=== PATIENT | female | born 1930 | race Hispanic/Latino ===

== ENCOUNTER 2017-12-03 10:55 | Inpatient (IN) | payer OTHER ==
[2017-12-03] MEDS ORDERED: SODIUM CHLORIDE FLUSH SYRINGE 10 ML IV PRN (11:13)
[2017-12-03 13:12] LABS: Hematocrit 43.2 % (30.3-42.9); Hemoglobin 14.7 gm/dl (10.1-14.3); Mean Corpuscular HGB Conc 34 % (30-34); Mean Corpuscular Hemoglobin 30 pg (28-32); Mean Corpuscular Volume 87 fl (79-97); Platelet Count 269 K/mm3 (140-440); Red Blood Count 4.94 M/mm3 (3.65-5.03); Red Cell Distribution Width 14.3 % (13.2-15.2)
[2017-12-03 13:21] LABS: Partial Thromboplastin Time 34.7 Sec. (24.2-36.6)
[2017-12-03 13:28] LABS: Albumin 3.9 g/dL (3.9-5)
[2017-12-03 14:16] LABS: Band Neutrophils # (Manual) 0.5 K/mm3; Basophils % (Manual) 0 % (0.0-1.8); Eosinophils % (Manual) 0 % (0.0-4.3); Total Cells Counted 100
[2017-12-03 14:17] LABS: Anisocytosis 1+; Platelet Estimate Cons
[2017-12-03] MEDS: PROTONIX IV SCH (14:23)
[2017-12-03] MEDS: NACL 0.9% 1000 ML 1,000 ML IV SCH ×2 (14:23→23:56)
--- NOTE | 2017-12-03 17:22 | History and Physical Report ---
History of Present Illness Date of examination: 12/03/17 Date of admission: 12/03/17 11:52 Medications and Allergies Allergies Allergy/AdvReac Type Severity Reaction Status Date / Time codeine Allergy Unknown Verified 12/03/17 17:13 FANTA Inhibitors AdvReac Unknown Verified 12/03/17 11:12 morphine AdvReac Unknown Verified 12/03/17 11:12 Sulfa (Sulfonamide AdvReac Unknown Verified 12/03/17 17:13 Antibiotics) Active Meds: Active Medications Sodium Chloride (Nacl 0.9% 1000 Ml) 1,000 mls @ 100 mls/hr IV DIRECT PARAMJIT Last Admin: 12/03/17 14:23 Dose: 100 mls/hr Pantoprazole Sodium (Protonix) 40 mg IV QDAY [facility] Last Admin: 12/03/17 14:23 Dose: 40 mg Pneumococcal Polyvalent Vaccine (Pneumovax 23) 0.5 ml IM .ONCE ONE Stop: 12/04/17 12:01 Sodium Chloride (Sodium Chloride Flush Syringe 10 Ml) 10 ml IV BID PARAMJIT Sodium Chloride (Sodium Chloride Flush Syringe 10 Ml) 10 ml IV PRN PRN PRN Reason: LINE FLUSH Exam - Constitutional Vitals: Temp Pulse Resp BP Pulse Ox 88 101/59 12/03/17 14:28 12/03/17 14:28 Results - Labs CBC & Chem 7: 12/03/17 12:31 12/03/17 12:31 Labs: Abnormal lab results 12/03/17 12/03/17 Range/Units 12:31 12:31 Hgb 14.7 H (10.1-14.3) gm/dl Hct 43.2 H (30.3-42.9) % Monocytes % (Manual) 20.0 H (0.0-7.3) % Nucleated RBC % 1.0 H (0.0-0.9) % Monocytes # (Manual) 1.5 H (0.0-0.8) K/mm3 Sodium 135 L (137-145) mmol/L Chloride 95.5 L (98-107) mmol/L Carbon Dioxide 21 L (22-30) mmol/L BUN 31 H (7-17) mg/dL Glucose 167 H (65-100) mg/dL
--- NOTE | 2017-12-03 19:24 | Cat Scan Report ---
FINAL REPORT EXAM: CT ABDOMEN PELVIS W CON HISTORY: ABDOMINAL PAIN, HEMATOCHEZIA TECHNIQUE: Helical CT scan through the abdomen and pelvis after ingestion of oral contrast and during intravenous injection of iodinated contrast. Images are reconstructed in the sagittal and coronal planes. PRIORS: None. FINDINGS: Images through the lower thorax show extensive hilar and mediastinal calcified lymph nodes consistent with old granulomatous disease. There are calcified pulmonary granulomas in the bilateral lung bases. The liver, pancreas and adrenal glands appear normal. Gallbladder is absent. There are calcifications in the spleen consistent with old granulomatous disease. There are scattered tiny cysts in the right kidney. There are multiple cysts in the left kidney with the largest measuring 2.1 cm. Otherwise, the kidneys appear normal. The uterus and ovaries are absent. There is a small hiatal hernia. Otherwise, the stomach appears grossly within normal limits. Most of the ileum has diffuse wall thickening. There is an air-fluid level in the cecum. There is colonic diverticulosis without evidence of acute diverticulitis. A normal-appearing appendix is identified. There is extensive atherosclerotic calcification of the abdominal aorta and iliac and femoral arteries without aneurysm. There is atherosclerotic calcification of the origin of the SMA and bilateral renal arteries as well throughout the iliac and visualized femoral arteries. There is been posterior metallic fusion from L4 through S1. There is an umbilical hernia containing normal appearing fat. IMPRESSION: 1. Extensive thickening of the wall of the ileum may be due to infectious enteritis, inflammatory enteritis or ischemia 2. Extensive atherosclerosis 3. Evidence of old granulomatous disease 4. Umbilical hernia containing normal appearing fat
--- NOTE | 2017-12-03 20:21 | History and Physical Report ---
History of Present Illness Date of examination: 12/03/17 Date of admission: 12/03/17 11:52 Chief complaint: Bloody diarrhea 2 days duration History of present illness: Patient [age]-year-old lady who has a history of dementia, diabetes mellitus type 2, hypertension, bipolar disorder and lives in a personal snf presetned to my office today with her caregiver complaining of abdominal pain and bloody diarrhea. Abdominal pain was moderate to severe in intensity. Associated with bloody diarrhea. Has had about 10 loose motions since onset 2 days ago. Has nausea and vomiting 2. Has bright red blood mixed with loose stool . Patient had low-grade fever at home. Denies any weight loss. Pt has dementia. This history was therefore obtained from her caregiver over the phone Past History Past Medical History: diabetes, hypertension, other (vascular dementia, bipolar disorder) Past Surgical History: No surgical history Social history: denies: smoking, alcohol abuse, prescription drug abuse Family history: no significant family history Medications and Allergies Allergies Allergy/AdvReac Type Severity Reaction Status Date / Time codeine Allergy Unknown Verified 12/03/17 17:13 FANTA Inhibitors AdvReac Unknown Verified 12/03/17 11:12 morphine AdvReac Unknown Verified 12/03/17 11:12 Sulfa (Sulfonamide AdvReac Unknown Verified 12/03/17 17:13 Antibiotics) Active Meds: Active Medications Sodium Chloride (Nacl 0.9% 1000 Ml) 1,000 mls @ 100 mls/hr IV DIRECT PARAMJIT Last Admin: 12/03/17 14:23 Dose: 100 mls/hr Pantoprazole Sodium (Protonix) 40 mg IV QDAY PARAMJIT Last Admin: 12/03/17 14:23 Dose: 40 mg Pneumococcal Polyvalent Vaccine (Pneumovax 23) 0.5 ml IM .ONCE ONE Stop: 12/04/17 12:01 Sodium Chloride (Sodium Chloride Flush Syringe 10 Ml) 10 ml IV BID PARAMJIT Sodium Chloride (Sodium Chloride Flush Syringe 10 Ml) 10 ml IV PRN PRN PRN Reason: LINE FLUSH Review of Systems ROS unobtainable: due to mental status Exam - Physical Exam Narrative exam: Constitutional: Well-nourished well-developed. Pleasantly confused. In no distress Head: Normocephalic atraumatic Eyes: Pupils are equal round and reactive to light Nose: No enlarged turbinates, no septal deviation. Mouth: Moist mucous membranes. Neck: Supple no thyromegaly. No bruit. No JVD Heart: Regular rate and rhythm, S1-S2 abnormal. No rubs murmurs or gallop Lungs: Clear to auscultation bilaterally no rales or rhonchi Abdomen: Soft, nontender. Bowel sound are present. Extremities: No edema no cyanosis and no clubbing. Neuro: Alert oriented Oriented x1. No focal sensory or motor deficit. Pleasantly confused Skin: No rashes no hyperemic spots Psychiatry: Acute LLE cellulites - Constitutional Vitals: Temp Pulse Resp BP Pulse Ox 88 108/54 12/03/17 14:28 12/03/17 19:16 Results - Labs CBC & Chem 7: 12/03/17 12:31 12/03/17 12:31 Labs: Abnormal lab results 12/03/17 12/03/17 Range/Units 12:31 12:31 Hgb 14.7 H (10.1-14.3) gm/dl Hct 43.2 H (30.3-42.9) % Monocytes % (Manual) 20.0 H (0.0-7.3) % Nucleated RBC % 1.0 H (0.0-0.9) % Monocytes # (Manual) 1.5 H (0.0-0.8) K/mm3 Sodium 135 L (137-145) mmol/L Chloride 95.5 L (98-107) mmol/L Carbon Dioxide 21 L (22-30) mmol/L BUN 31 H (7-17) mg/dL Glucose 167 H (65-100) mg/dL Assessment and Plan - Bloody diarrhea - Acute metabolic encephalopathy - Prediabetes with A1c of 6.2% - Mild dehydration. BUN of 31 Admit NPO, IV hydration, serial H&H Stool for occult blood, cx, ova and parasite Trend glucose level and commence sliding scale insulin if glucose level is greater than 180 Gradual hydration, CT scan of the abdomen and pelvis after adequate hydration GI consult DVT prophylaxis with SCDs only
[2017-12-03 23:12] LABS: Hematocrit 39.9 % (30.3-42.9); Hemoglobin 13.6 gm/dl (10.1-14.3)
--- NOTE | 2017-12-03 23:49 | XRay Report ---
FINAL REPORT PROCEDURE: XR CHEST 1V AP TECHNIQUE: Chest radiograph anteroposterior view. CPT 37491 HISTORY: polycythemia COMPARISON: No prior studies are available for comparison. FINDINGS: Heart: The heart size is slightly pronounced. Mediastinum/Vessels: Normal. Lungs/Pleural space: Multiple nodular densities identified in both lower lungs these measure up to 8 millimeters. Multiple calcified granulomas identified in both hilar regions. Findings consistent with granulomatous change. No consolidating infiltrate or effusion. Pneumothorax. Bony thorax: No acute osseous abnormality. Life support devices: None. IMPRESSION: Nodular densities in both lower lungs measuring up to 8 millimeters. Multiple calcified granulomas in both hilar regions consistent with old granulomatous change. No evidence of an acute infiltrate or effusion..
[2017-12-03] MEDS: SODIUM CHLORIDE FLUSH SYRINGE 10 ML IV SCH (23:57)
[2017-12-04 03:10] LABS: Bacteria,Urine 4+ /HPF (Negative); Bilirubin,Urine NEG (Negative); Blood,Urine SM (Negative); Color,Urine Yellow (Yellow); Mucus,Urine FEW /HPF; Urobilinogen,Urine < 2.0 mg/dL (<2.0)
[2017-12-04 04:58] LABS: Hematocrit 43.4 % (30.3-42.9); Hemoglobin 14.1 gm/dl (10.1-14.3); Mean Corpuscular HGB Conc 32 % (30-34); Mean Corpuscular Hemoglobin 30 pg (28-32); Mean Corpuscular Volume 92 fl (79-97); Platelet Count 232 K/mm3 (140-440); Red Blood Count 4.72 M/mm3 (3.65-5.03); Red Cell Distribution Width 14.8 % (13.2-15.2)
[2017-12-04 05:13] LABS: Alanine Aminotransferase 8 units/L (7-56); Albumin 3.5 g/dL (3.9-5); BUN/Creatinine Ratio 36; Blood Urea Nitrogen 29 mg/dL (7-17); Calcium 9.5 mg/dL (8.4-10.2); Hemolysis Index 13
[2017-12-04 06:29] LABS: Band Neutrophils # (Manual) 1.7 K/mm3; Basophils % (Manual) 0 % (0.0-1.8); Eosinophils % (Manual) 0 % (0.0-4.3); Platelet Estimate Consistent w Auto; Total Cells Counted 100
--- NOTE | 2017-12-04 09:57 | Progress Note ---
Assessment and Plan Blood diarrhea: ?secondary to colitis No evidence of acute GI bleeding, H/H stable CT of abdomen and pelvis showed extensive thickening of wall of ileum suggestive of infectious enteritis or inflammatory enteritis or ischemia follow-up stool studies Continue gentle hydration with IV fluids GI following. commnece flagyl po and cipro Prediabetes: A1c 6.2% Will follow blood sugars and commence sliding scale insulin if greater than 180 Mild dehydration: Improving with IV fluids Hyponatremia: Likely due to dehydration Improving with IVF DVT prophylaxis with SCDs, GI prophylaxis with Protonix Subjective Date of service: 12/04/17 Principal diagnosis: Bloody diarrhea Interval history: Patient seen and examined. Laboratory tests reviewed. Objective - Constitutional Vitals: Vital Signs - 12hr 12/03/17 12/03/17 12/04/17 22:00 23:45 05:46 Temperature 98.0 F 99.4 F Pulse Rate 101 H 105 H Respiratory 18 18 16 Rate Blood Pressure 108/67 81/41 O2 Sat by Pulse 93 95 Oximetry General appearance: Present: no acute distress, well-nourished - EENT Eyes: PERRL, EOM intact ENT: hearing intact, clear oral mucosa Ears: bilateral: normal - Neck Neck: supple, normal ROM - Respiratory Respiratory effort: normal Respiratory: bilateral: CTA - Breasts Breasts: deferred - Cardiovascular Rhythm: regular Heart Sounds: Present: S1 & S2. Absent: gallop, rub Extremities: pulses intact, No edema, normal color, Full ROM - Gastrointestinal General gastrointestinal: Present: soft, non-tender, non-distended, normal bowel sounds Rectal Exam: deferred - Genitourinary Female genitourinary: deferred - Integumentary Integumentary: clear, warm, dry - Musculoskeletal Musculoskeletal: strength equal bilaterally - Neurologic Neurologic: moves all extremities - Psychiatric Psychiatric: appropriate mood/affect, cooperative - Labs CBC & Chem 7: 12/04/17 13:29 12/04/17 04:27 Labs: Abnormal lab results 12/03/17 12/03/17 12/03/17 Range/Units 12:31 12:31 19:18 Hgb 14.7 H (10.1-14.3) gm/dl Hct 43.2 H (30.3-42.9) % Seg Neuts % (Manual) (40.0-70.0) % Monocytes % (Manual) 20.0 H (0.0-7.3) % Nucleated RBC % 1.0 H (0.0-0.9) % Seg Neutrophils # Man (1.8-7.7) K/mm3 Monocytes # (Manual) 1.5 H (0.0-0.8) K/mm3 Sodium 135 L (137-145) mmol/L Chloride 95.5 L (98-107) mmol/L Carbon Dioxide 21 L (22-30) mmol/L BUN 31 H (7-17) mg/dL Glucose 167 H (65-100) mg/dL Hemoglobin A1c 6.2 H (4-6) % Phosphorus (2.5-4.5) mg/dL Albumin (3.9-5) g/dL Ur Specific [place] (1.003-1.030) 12/04/17 12/04/17 12/04/17 Range/Units 02:18 04:27 04:27 Hgb (10.1-14.3) gm/dl Hct 43.4 H (30.3-42.9) % Seg Neuts % (Manual) 31.0 L (40.0-70.0) % Monocytes % (Manual) (0.0-7.3) % Nucleated RBC % (0.0-0.9) % Seg Neutrophils # Man 1.4 L (1.8-7.7) K/mm3 Monocytes # (Manual) (0.0-0.8) K/mm3 Sodium 136 L (137-145) mmol/L Chloride (98-107) mmol/L Carbon Dioxide 19 L (22-30) mmol/L BUN 29 H (7-17) mg/dL Glucose 108 H (65-100) mg/dL Hemoglobin A1c (4-6) % Phosphorus 1.70 L D (2.5-4.5) mg/dL Albumin 3.5 L (3.9-5) g/dL Ur Specific [place] > 1.059 H (1.003-1.030)
[2017-12-04] MEDS: PROTONIX IV SCH (10:19)
[2017-12-04] MEDS: NACL 0.9% 1000 ML 1,000 ML IV SCH ×2 (10:19→23:22)
[2017-12-04] MEDS: SODIUM CHLORIDE FLUSH SYRINGE 10 ML IV SCH ×2 (10:20→22:23)
--- NOTE | 2017-12-04 10:48 | Gastroenterology Consultation ---
<HANH CASTILLO - Last Filed: 12/04/17 10:49> History of Present Illness - Reason for Consult Consult date: 12/04/17 GI bleed Requesting physician: MARVIN BIRMINGHAM - History of Present Illness Patient is a 87 y/o female with PMH of dementia, DM, HTN, and bipolar disorder who was brought to ED from personal skilled nursing with c/o abd pain and bloody diarrhea with bright red blood mixed with loose stool x 2 days with an associated low grade fever and N/V x 2 episodes to which GI has been consulted. No hematemesis or melena. Denies CP, SOB, dizziness, constipation, or wt loss. This morning patient was resting in bed w/o acute distress. Reports abd pain and diarrhea is improving. No BM or active signs of bleeding this am per patient and nursing. Tolerating clear liquids. Patient states she believes she has had some antibiotics recently but is unsure. No travel or known ill contacts. No hx of IBD. Past History Past Medical History: diabetes, hypertension, other (vascular dementia, bipolar disorder) Past Surgical History: No surgical history Social history: other (personal skilled nursing resident). denies: smoking, alcohol abuse, prescription drug abuse Family history: no significant family history Medications and Allergies Allergies Allergy/AdvReac Type Severity Reaction Status Date / Time codeine Allergy Unknown Verified 12/03/17 17:13 FANTA Inhibitors AdvReac Unknown Verified 12/03/17 11:12 morphine AdvReac Unknown Verified 12/03/17 11:12 Sulfa (Sulfonamide AdvReac Unknown Verified 12/03/17 17:13 Antibiotics) Home Medications Medication Instructions Recorded Confirmed Last Taken Type Aspirin EC [Aspirin Enteric Coated 81 mg PO QDAY 12/03/17 12/03/17 Unknown History TAB] AtorvaSTATin 20 mg PO HS 12/03/17 12/03/17 Unknown History Carvedilol 3.125 mg PO BID 12/03/17 12/03/17 Unknown History LORazepam [Ativan] 1 mg PO BID 12/03/17 12/03/17 Unknown History Metformin HCl [Glucophage] 500 mg PO HS 12/03/17 12/03/17 Unknown History NIFEdipine [Nifedipine ER] 60 mg PO QDAY 12/03/17 12/03/17 Unknown History QUEtiapine Fumarate 100 mg PO HS 12/03/17 12/03/17 Unknown History Quetiapine Fumarate [SEROquel] 50 mg PO QDAY 12/03/17 12/03/17 Unknown History risperiDONE [Risperdal] 0.5 mg PO HS 12/03/17 12/03/17 Unknown History Active Meds: Active Medications Sodium Chloride (Nacl 0.9% 1000 Ml) 1,000 mls @ 100 mls/hr IV DIRECT [facility] Last Admin: 12/04/17 10:19 Dose: 100 mls/hr Pantoprazole Sodium (Protonix) 40 mg IV QDAY [facility] Last Admin: 12/04/17 10:19 Dose: 40 mg Pneumococcal Polyvalent Vaccine (Pneumovax 23) 0.5 ml IM .ONCE ONE Stop: 12/04/17 12:01 Sodium Chloride (Sodium Chloride Flush Syringe 10 Ml) 10 ml IV BID [facility] Last Admin: 12/04/17 10:20 Dose: 10 ml Sodium Chloride (Sodium Chloride Flush Syringe 10 Ml) 10 ml IV PRN PRN PRN Reason: LINE FLUSH Review of Systems - Review of Systems All systems: negative Gastrointestinal: abdominal pain, diarrhea, hematochezia Exam - Constitutional Vital Signs: Temp Pulse Resp BP Pulse Ox 99.4 F 105 H 16 81/41 95 12/04/17 05:46 12/04/17 05:46 12/04/17 05:46 12/04/17 05:46 12/04/17 05:46 General appearance: no acute distress - EENT Eyes: PERRL, EOM intact ENT: hearing intact - Respiratory Respiratory: bilateral: CTA - Cardiovascular Rhythm: other (tachycardia) Heart Sounds: Present: S1 & S2 - Gastrointestinal General gastrointestinal: Present: soft, tender (mild generalized TTP), non- distended, normal bowel sounds - Labs CBC & Chem 7: 12/04/17 04:27 12/04/17 04:27 Lab Results: Laboratory Results - last 24 hr 12/03/17 12/03/17 12/03/17 12:31 12:31 12:31 WBC 7.5 RBC 4.94 Hgb 14.7 H Hct 43.2 H MCV 87 MCH 30 MCHC 34 RDW 14.3 Plt Count 269 Crisp % (Auto) Machine Installer Add Manual Diff Complete Total Counted 100 Seg Neuts % (Manual) 52.0 Band Neutrophils % 6.0 Lymphocytes % (Manual) 19.0 Reactive Lymphs % (Man) 3.0 Monocytes % (Manual) 20.0 H Eosinophils % (Manual) 0 Basophils % (Manual) 0 Metamyelocytes % 0 Myelocytes % 0 Promyelocytes % 0 Blast Cells % 0 Nucleated RBC % 1.0 H Seg Neutrophils # Man 3.9 Band Neutrophils # 0.5 Lymphocytes # (Manual) 1.4 Abs React Lymphs (Man) 0.2 Monocytes # (Manual) 1.5 H Eosinophils # (Manual) 0.0 Basophils # (Manual) 0.0 Metamyelocytes # 0.0 Myelocytes # 0.0 Promyelocytes # 0.0 Blast Cells # 0.0 WBC Morphology Not Reportable Hypersegmented Neuts Not Reportable Hyposegmented Neuts Not Reportable Hypogranular Neuts Not Reportable Smudge Cells Not Reportable Toxic Granulation Not Reportable Toxic Vacuolation Not Reportable Dohle Bodies Not Reportable Pelger-Huet Anomaly Not Reportable Conner Rods Not Reportable Platelet Estimate Cons Clumped Platelets Not Reportable Plt Clumps, EDTA Not Reportable Large Platelets Not Reportable Giant Platelets Not Reportable Platelet Satelliting Not Reportable Plt Morphology Comment Not Reportable RBC Morphology Not Reportable Dimorphic RBCs Not Reportable Polychromasia Not Reportable Hypochromasia Not Reportable Poikilocytosis Not Reportable Anisocytosis 1+ Microcytosis Not Reportable Macrocytosis Not Reportable Spherocytes Not Reportable Pappenheimer Bodies Not Reportable Sickle Cells Not Reportable Target Cells Not Reportable Tear Drop Cells Not Reportable Ovalocytes Not Reportable Helmet Cells Not Reportable [place] Bodies Not Reportable [place] Rings Not Reportable Rachael Cells Not Reportable Bite Cells Not Reportable Crenated Cell Not Reportable Elliptocytes Not Reportable Acanthocytes (Spur) Not Reportable Rouleaux Not Reportable Hemoglobin C Crystals Not Reportable Schistocytes Not Reportable Malaria parasites Not Reportable Aldo Bodies Not Reportable Hem Pathologist Commnt No PT 13.7 INR 1.00 APTT 34.7 Sodium 135 L Potassium 4.2 Chloride 95.5 L Carbon Dioxide 21 L Anion Gap 23 BUN 31 H Creatinine 1.1 Estimated GFR 47 BUN/Creatinine Ratio 28 Glucose 167 H Hemoglobin A1c Calcium 10.0 Phosphorus Magnesium Total Bilirubin 0.90 AST 20 ALT 10 Alkaline Phosphatase 72 Total Protein 7.7 Albumin 3.9 Albumin/Globulin Ratio 1.0 Urine Color Urine Turbidity Urine pH Ur Specific Sabael Urine Protein Urine Glucose (UA) Urine Ketones Urine Blood Urine Nitrite Urine Bilirubin Urine Urobilinogen Ur Leukocyte Esterase Urine WBC (Auto) Urine RBC (Auto) U Epithel Cells (Auto) Urine Bacteria (Auto) Urine Mucus 12/03/17 12/03/17 12/03/17 12:31 19:18 22:53 WBC RBC Hgb 13.6 Hct 39.9 MCV MCH MCHC RDW Plt Count Crisp % (Auto) Add Manual Diff Total Counted Seg Neuts % (Manual) Band Neutrophils % Lymphocytes % (Manual) Reactive Lymphs % (Man) Monocytes % (Manual) Eosinophils % (Manual) Basophils % (Manual) Metamyelocytes % Myelocytes % Promyelocytes % Blast Cells % Nucleated RBC % Seg Neutrophils # Man Band Neutrophils # Lymphocytes # (Manual) Abs React Lymphs (Man) Monocytes # (Manual) Eosinophils # (Manual) Basophils # (Manual) Metamyelocytes # Myelocytes # Promyelocytes # Blast Cells # WBC Morphology Hypersegmented Neuts Hyposegmented Neuts Hypogranular Neuts Smudge Cells Toxic Granulation Toxic Vacuolation Dohle Bodies Pelger-Huet Anomaly Conner Rods Platelet Estimate Clumped Platelets Plt Clumps, EDTA Large Platelets Giant Platelets Platelet Satelliting Plt Morphology Comment RBC Morphology Dimorphic RBCs Polychromasia Hypochromasia Poikilocytosis Anisocytosis Microcytosis Macrocytosis Spherocytes Pappenheimer Bodies Sickle Cells Target Cells Tear Drop Cells Ovalocytes Helmet Cells [place] Bodies [place] Rings Rachael Cells Bite Cells Crenated Cell Elliptocytes Acanthocytes (Spur) Rouleaux Hemoglobin C Crystals Schistocytes Malaria parasites Aldo Bodies Hem Pathologist Commnt PT INR APTT Sodium Potassium Chloride Carbon Dioxide Anion Gap BUN Creatinine Estimated GFR BUN/Creatinine Ratio Glucose Hemoglobin A1c 6.2 H Calcium Phosphorus 2.80 Magnesium 2.30 Total Bilirubin AST ALT Alkaline Phosphatase Total Protein Albumin Albumin/Globulin Ratio Urine Color Urine Turbidity Urine pH Ur Specific Sabael Urine Protein Urine Glucose (UA) Urine Ketones Urine Blood Urine Nitrite Urine Bilirubin Urine Urobilinogen Ur Leukocyte Esterase Urine WBC (Auto) Urine RBC (Auto) U Epithel Cells (Auto) Urine Bacteria (Auto) Urine Mucus 12/04/17 12/04/17 12/04/17 02:18 04:27 04:27 WBC 4.6 RBC 4.72 Hgb 14.1 Hct 43.4 H MCV 92 MCH 30 MCHC 32 RDW 14.8 Plt Count 232 Crisp % (Auto) Machine Installer Add Manual Diff Complete Total Counted 100 Seg Neuts % (Manual) 31.0 L Band Neutrophils % 37.0 Lymphocytes % (Manual) 30.0 Reactive Lymphs % (Man) 0 Monocytes % (Manual) 2.0 Eosinophils % (Manual) 0 Basophils % (Manual) 0 Metamyelocytes % 0 Myelocytes % 0 Promyelocytes % 0 Blast Cells % 0 Nucleated RBC % Not Reportable Seg Neutrophils # Man 1.4 L Band Neutrophils # 1.7 Lymphocytes # (Manual) 1.4 Abs React Lymphs (Man) 0.0 Monocytes # (Manual) 0.1 Eosinophils # (Manual) 0.0 Basophils # (Manual) 0.0 Metamyelocytes # 0.0 Myelocytes # 0.0 Promyelocytes # 0.0 Blast Cells # 0.0 WBC Morphology Not Reportable Hypersegmented Neuts Not Reportable Hyposegmented Neuts Not Reportable Hypogranular Neuts Not Reportable Smudge Cells Not Reportable Toxic Granulation Not Reportable Toxic Vacuolation Not Reportable Dohle Bodies Not Reportable Pelger-Huet Anomaly Not Reportable Conner Rods Not Reportable Platelet Estimate Consistent w auto Clumped Platelets Not Reportable Plt Clumps, EDTA Not Reportable Large Platelets Not Reportable Giant Platelets Not Reportable Platelet Satelliting Not Reportable Plt Morphology Comment Not Reportable RBC Morphology Not Reportable Dimorphic RBCs Not Reportable Polychromasia Not Reportable Hypochromasia Not Reportable Poikilocytosis Not Reportable Anisocytosis Not Reportable Microcytosis Not Reportable Macrocytosis Not Reportable Spherocytes Not Reportable Pappenheimer Bodies Not Reportable Sickle Cells Not Reportable Target Cells Not Reportable Tear Drop Cells Not Reportable Ovalocytes Not Reportable Helmet Cells Not Reportable [place] Bodies Not Reportable [place] Rings Not Reportable [place] Cells Not Reportable Bite Cells Not Reportable Crenated Cell Not Reportable Elliptocytes Not Reportable Acanthocytes (Spur) Not Reportable Rouleaux Not Reportable Hemoglobin C Crystals Not Reportable Schistocytes Not Reportable Malaria parasites Not Reportable Aldo Bodies Not Reportable Hem Pathologist Commnt No PT INR APTT Sodium 136 L Potassium 4.2 Chloride 99.4 Carbon Dioxide 19 L Anion Gap 22 BUN 29 H Creatinine 0.8 Estimated GFR > 60 BUN/Creatinine Ratio 36 Glucose 108 H Hemoglobin A1c Calcium 9.5 Phosphorus 1.70 L D Magnesium 2.20 Total Bilirubin 0.90 AST 19 ALT 8 Alkaline Phosphatase 61 Total Protein 6.7 Albumin 3.5 L Albumin/Globulin Ratio 1.1 Urine Color Yellow Urine Turbidity Clear Urine pH 5.0 Ur Specific Sabael > 1.059 H Urine Protein 30 mg/dl Urine Glucose (UA) Neg Urine Ketones Neg Urine Blood Sm Urine Nitrite Pos Urine Bilirubin Neg Urine Urobilinogen < 2.0 Ur Leukocyte Esterase Tr Urine WBC (Auto) 2.0 Urine RBC (Auto) 5.0 U Epithel Cells (Auto) 8.0 Urine Bacteria (Auto) 4+ Urine Mucus Few Assessment and Plan 1.colitis -temp 99.4 -WBC-WNL -H/H stable (14.1/43.4) -no active signs of bleeding -abd CT showed extensive thickening of the wall of the ileum, may be due to infectious enteritis, inflammatory enteritis, or ischemia -will order stool studies to r/o infection -start on empiric antibiotics -clinically, patient reports symptoms are now improving -tolerating clear- okay to advance as tolerated -continue supportive care -will follow <COREY MAXWELL R - Last Filed: 12/04/17 15:20> Medications and Allergies Active Meds: Active Medications Sodium Chloride (Nacl 0.9% 1000 Ml) 1,000 mls @ 100 mls/hr IV DIRECT [facility] Last Admin: 12/04/17 10:19 Dose: 100 mls/hr Levofloxacin/Dextrose (Levaquin 500mg/100ml) 500 mg in 100 mls @ 100 mls/hr IV Q24HR [facility]; Protocol Last Admin: 12/04/17 14:26 Dose: 100 mls/hr Metronidazole (Flagyl 500 Mg/100 Ml) 500 mg in 100 mls @ 100 mls/hr IV Q8HR [facility] ; Protocol Last Admin: 12/04/17 14:26 Dose: 100 mls/hr Pantoprazole Sodium (Protonix) 40 mg IV QDAY [facility] Last Admin: 12/04/17 10:19 Dose: 40 mg Sodium Chloride (Sodium Chloride Flush Syringe 10 Ml) 10 ml IV BID [facility] Last Admin: 12/04/17 10:20 Dose: 10 ml Sodium Chloride (Sodium Chloride Flush Syringe 10 Ml) 10 ml IV PRN PRN PRN Reason: LINE FLUSH Exam - Constitutional Vital Signs: Temp Pulse Resp BP Pulse Ox 99.4 F 81 20 93/61 90 12/04/17 12:25 12/04/17 12:25 12/04/17 12:25 12/04/17 12:25 12/04/17 12:25 - Labs CBC & Chem 7: 12/04/17 13:29 12/04/17 04:27 Lab Results: Laboratory Results - last 24 hr 12/03/17 12/03/17 12/04/17 19:18 22:53 02:18 WBC RBC Hgb 13.6 Hct 39.9 MCV MCH MCHC RDW Plt Count Crisp % (Auto) Add Manual Diff Total Counted Seg Neuts % (Manual) Band Neutrophils % Lymphocytes % (Manual) Reactive Lymphs % (Man) Monocytes % (Manual) Eosinophils % (Manual) Basophils % (Manual) Metamyelocytes % Myelocytes % Promyelocytes % Blast Cells % Nucleated RBC % Seg Neutrophils # Man Band Neutrophils # Lymphocytes # (Manual) Abs React Lymphs (Man) Monocytes # (Manual) Eosinophils # (Manual) Basophils # (Manual) Metamyelocytes # Myelocytes # Promyelocytes # Blast Cells # WBC Morphology Hypersegmented Neuts Hyposegmented Neuts Hypogranular Neuts Smudge Cells Toxic Granulation Toxic Vacuolation Dohle Bodies Pelger-Huet Anomaly Conner Rods Platelet Estimate Clumped Platelets Plt Clumps, EDTA Large Platelets Giant Platelets Platelet Satelliting Plt Morphology Comment RBC Morphology Dimorphic RBCs Polychromasia Hypochromasia Poikilocytosis Anisocytosis Microcytosis Macrocytosis Spherocytes Pappenheimer Bodies Sickle Cells Target Cells Tear Drop Cells Ovalocytes Helmet Cells [place] Bodies [place] Rings [place] Cells Bite Cells Crenated Cell Elliptocytes Acanthocytes (Spur) Rouleaux Hemoglobin C Crystals Schistocytes Malaria parasites Aldo Bodies Hem Pathologist Commnt Sodium Potassium Chloride Carbon Dioxide Anion Gap BUN Creatinine Estimated GFR BUN/Creatinine Ratio Glucose Hemoglobin A1c 6.2 H Calcium Phosphorus Magnesium Total Bilirubin AST ALT Alkaline Phosphatase Total Protein Albumin Albumin/Globulin Ratio Urine Color Yellow Urine Turbidity Clear Urine pH 5.0 Ur Specific Sabael > 1.059 H Urine Protein 30 mg/dl Urine Glucose (UA) Neg Urine Ketones Neg Urine Blood Sm Urine Nitrite Pos Urine Bilirubin Neg Urine Urobilinogen < 2.0 Ur Leukocyte Esterase Tr Urine WBC (Auto) 2.0 Urine RBC (Auto) 5.0 U Epithel Cells (Auto) 8.0 Urine Bacteria (Auto) 4+ Urine Mucus Few 12/04/17 12/04/17 12/04/17 04:27 04:27 13:29 WBC 4.6 RBC 4.72 Hgb 14.1 12.8 Hct 43.4 H 37.5 MCV 92 MCH 30 MCHC 32 RDW 14.8 Plt Count 232 Crisp % (Auto) Machine Installer Add Manual Diff Complete Total Counted 100 Seg Neuts % (Manual) 31.0 L Band Neutrophils % 37.0 Lymphocytes % (Manual) 30.0 Reactive Lymphs % (Man) 0 Monocytes % (Manual) 2.0 Eosinophils % (Manual) 0 Basophils % (Manual) 0 Metamyelocytes % 0 Myelocytes % 0 Promyelocytes % 0 Blast Cells % 0 Nucleated RBC % Not Reportable Seg Neutrophils # Man 1.4 L Band Neutrophils # 1.7 Lymphocytes # (Manual) 1.4 Abs React Lymphs (Man) 0.0 Monocytes # (Manual) 0.1 Eosinophils # (Manual) 0.0 Basophils # (Manual) 0.0 Metamyelocytes # 0.0 Myelocytes # 0.0 Promyelocytes # 0.0 Blast Cells # 0.0 WBC Morphology Not Reportable Hypersegmented Neuts Not Reportable Hyposegmented Neuts Not Reportable Hypogranular Neuts Not Reportable Smudge Cells Not Reportable Toxic Granulation Not Reportable Toxic Vacuolation Not Reportable Dohle Bodies Not Reportable Pelger-Huet Anomaly Not Reportable Conner Rods Not Reportable Platelet Estimate Consistent w auto Clumped Platelets Not Reportable Plt Clumps, EDTA Not Reportable Large Platelets Not Reportable Giant Platelets Not Reportable Platelet Satelliting Not Reportable Plt Morphology Comment Not Reportable RBC Morphology Not Reportable Dimorphic RBCs Not Reportable Polychromasia Not Reportable Hypochromasia Not Reportable Poikilocytosis Not Reportable Anisocytosis Not Reportable Microcytosis Not Reportable Macrocytosis Not Reportable Spherocytes Not Reportable Pappenheimer Bodies Not Reportable Sickle Cells Not Reportable Target Cells Not Reportable Tear Drop Cells Not Reportable Ovalocytes Not Reportable Helmet Cells Not Reportable Roberts-[place] Bodies Not Reportable [place] Rings Not Reportable [place] Cells Not Reportable Bite Cells Not Reportable Crenated Cell Not Reportable Elliptocytes Not Reportable Acanthocytes (Spur) Not Reportable Rouleaux Not Reportable Hemoglobin C Crystals Not Reportable Schistocytes Not Reportable Malaria parasites Not Reportable Aldo Bodies Not Reportable Hem Pathologist Commnt No Sodium 136 L Potassium 4.2 Chloride 99.4 Carbon Dioxide 19 L Anion Gap 22 BUN 29 H Creatinine 0.8 Estimated GFR > 60 BUN/Creatinine Ratio 36 Glucose 108 H Hemoglobin A1c Calcium 9.5 Phosphorus 1.70 L D Magnesium 2.20 Total Bilirubin 0.90 AST 19 ALT 8 Alkaline Phosphatase 61 Total Protein 6.7 Albumin 3.5 L Albumin/Globulin Ratio 1.1 Urine Color Urine Turbidity Urine pH Ur Specific Sabael Urine Protein Urine Glucose (UA) Urine Ketones Urine Blood Urine Nitrite Urine Bilirubin Urine Urobilinogen Ur Leukocyte Esterase Urine WBC (Auto) Urine RBC (Auto) U Epithel Cells (Auto) Urine Bacteria (Auto) Urine Mucus Assessment and Plan Pt denies complaints. No abd pain, N/V. She had a normal brown BM this AM, per RN, Prabhjot. I spoke with pt's daughter, Mamie, . Pt had been sick since 12/02 with abd pain, N/V. Of note, she had a colonoscopy approx 1 yr ago at [facility] – [place], and daughter states she was told she had diverticular disease. Currently, likely has infectious or toxic enteritis. Ischemia less likely. Would adv diet, and change to po abx. If does well, D/C to home, and can get repeat CT after 2-3 wks, to ensure resolution of enteritis.
[2017-12-04] MEDS ORDERED: PNEUMOVAX 23 IM ONE (12:00)
[2017-12-04 13:58] LABS: Hematocrit 37.5 % (30.3-42.9); Hemoglobin 12.8 gm/dl (10.1-14.3)
[2017-12-04] MEDS: FLAGYL 500 MG/100 ML 500 MG/100 ML BAG IV SCH ×2 (14:26→22:22)
[2017-12-04] MEDS: LEVAQUIN 500MG/100ML 500 MG/100 ML BAG IV SCH (14:26)
[2017-12-04] MEDS: TYLENOL PO PRN ×2 (15:53→22:35)
[2017-12-04] MEDS: ZOFRAN IV PRN (22:35)
[2017-12-05] MEDS: FLAGYL 500 MG/100 ML 500 MG/100 ML BAG IV SCH ×3 (05:49→22:20)
[2017-12-05 06:10] LABS: Hematocrit 36.4 % (30.3-42.9); Hemoglobin 12.4 gm/dl (10.1-14.3); Mean Corpuscular HGB Conc 34 % (30-34); Mean Corpuscular Hemoglobin 30 pg (28-32); Mean Corpuscular Volume 88 fl (79-97); Platelet Count 211 K/mm3 (140-440); Red Blood Count 4.16 M/mm3 (3.65-5.03); Red Cell Distribution Width 13.5 % (13.2-15.2)
[2017-12-05 06:34] LABS: Alanine Aminotransferase 10 units/L (7-56); Albumin 2.8 g/dL (3.9-5); BUN/Creatinine Ratio 34; Blood Urea Nitrogen 24 mg/dL (7-17); Calcium 8.7 mg/dL (8.4-10.2); Hemolysis Index 11
[2017-12-05 07:00] LABS: Band Neutrophils # (Manual) 2.1 K/mm3; Basophils % (Manual) 0 % (0.0-1.8); Platelet Estimate Consistent w Auto; Total Cells Counted 100
[2017-12-05] MEDS: ZOFRAN IV PRN (08:35)
[2017-12-05] MEDS: PROTONIX PO SCH (10:36)
[2017-12-05] MEDS: LEVAQUIN 500MG/100ML 500 MG/100 ML BAG IV SCH (10:36)
--- NOTE | 2017-12-05 11:32 | Gastroenterology Progress Note ---
<ANNAHANHESME Garza - Last Filed: 12/05/17 11:26> Assessment and Plan 1.colitis -afebrile -WBC-WNL -H/H -WNL -no active signs of bleeding -abd CT showed extensive thickening of the wall of the ileum, may be due to infectious enteritis, inflammatory enteritis, or ischemia -last colonoscopy per daughter (Mamie [phone]) was approx 1 yr ago at [facility] [place] that revealed diverticulosis -stool studies pending -etiology- likely infectious or toxic enteritis, ischemia less likely -advance diet as tolerated -continue abx and supportive care -recommend repeat CT in 2-3 wks to ensure resolution of enteritis -will follow Subjective Date of service: 12/05/17 Principal diagnosis: GI bleed Interval history: Patient w/o acute distress. Admits to generalized abd pain this am. No N/V but has decreased appetite. Objective - Constitutional Vitals: Temp Pulse Resp BP Pulse Ox 98.5 F 61 18 103/73 95 12/05/17 06:12 12/05/17 06:12 12/05/17 06:12 12/05/17 06:12 12/05/17 06:12 General appearance: no acute distress - Respiratory Respiratory: bilateral: CTA - Cardiovascular Rhythm: regular Heart Sounds: Present: S1 & S2 - Gastrointestinal General gastrointestinal: Present: soft, tender (mild generalized TTP), non- distended, normal bowel sounds - Labs CBC & Chem 7: 12/05/17 05:46 12/05/17 05:46 Labs: Laboratory Results - last 24 hr 12/04/17 12/05/17 12/05/17 13:29 05:46 05:46 WBC 6.1 RBC 4.16 Hgb 12.8 12.4 Hct 37.5 36.4 MCV 88 MCH 30 MCHC 34 RDW 13.5 Plt Count 211 [place] % (Auto) Surveyor Helper Add Manual Diff Complete Total Counted 100 Seg Neuts % (Manual) 28.0 L Band Neutrophils % 35.0 Lymphocytes % (Manual) 22.0 Reactive Lymphs % (Man) 0 Monocytes % (Manual) 10.0 H Eosinophils % (Manual) 4.0 Basophils % (Manual) 0 Metamyelocytes % 1.0 Myelocytes % 0 Promyelocytes % 0 Blast Cells % 0 Nucleated RBC % Not Reportable Seg Neutrophils # Man 1.7 L Band Neutrophils # 2.1 Lymphocytes # (Manual) 1.3 Abs React Lymphs (Man) 0.0 Monocytes # (Manual) 0.6 Eosinophils # (Manual) 0.2 Basophils # (Manual) 0.0 Metamyelocytes # 0.1 Myelocytes # 0.0 Promyelocytes # 0.0 Blast Cells # 0.0 WBC Morphology Not Reportable Hypersegmented Neuts Not Reportable Hyposegmented Neuts Not Reportable Hypogranular Neuts Not Reportable Smudge Cells Not Reportable Toxic Granulation Not Reportable Toxic Vacuolation Not Reportable Dohle Bodies Not Reportable Pelger-Huet Anomaly Not Reportable Conner Rods Not Reportable Platelet Estimate Consistent w auto Clumped Platelets Not Reportable Plt Clumps, EDTA Not Reportable Large Platelets Not Reportable Giant Platelets Not Reportable Platelet Satelliting Not Reportable Plt Morphology Comment Not Reportable RBC Morphology Not Reportable Dimorphic RBCs Not Reportable Polychromasia Not Reportable Hypochromasia Not Reportable Poikilocytosis Not Reportable Anisocytosis Not Reportable Microcytosis Not Reportable Macrocytosis Not Reportable Spherocytes Not Reportable Pappenheimer Bodies Not Reportable Sickle Cells Not Reportable Target Cells Not Reportable Tear Drop Cells Not Reportable Ovalocytes Not Reportable Helmet Cells Not Reportable Roberts-Tazewell Bodies Not Reportable Wentworth Rings Not Reportable Rachael Cells Not Reportable Bite Cells Not Reportable Crenated Cell Not Reportable Elliptocytes Not Reportable Acanthocytes (Spur) Not Reportable Rouleaux Not Reportable Hemoglobin C Crystals Not Reportable Schistocytes Not Reportable Malaria parasites Not Reportable Aldo Bodies Not Reportable Hem Pathologist Commnt No Sodium 134 L Potassium 3.7 Chloride 99.0 Carbon Dioxide 19 L Anion Gap 20 BUN 24 H Creatinine 0.7 Estimated GFR > 60 BUN/Creatinine Ratio 34 Glucose 111 H Calcium 8.7 Total Bilirubin 0.70 AST 23 ALT 10 Alkaline Phosphatase 49 Total Protein 5.7 L Albumin 2.8 L Albumin/Globulin Ratio 1.0 <COREY MAXWELL R - Last Filed: 12/05/17 16:12> Assessment and Plan Pt complains of more upper abd and LUQ discomfort. No N/V. Had brown BM overnight, per RN. Pain may be due to pancreas. Already on PPI for PUD. Doubt biliary or ischemic process. - monitor labs and symptoms. May need repeat CT or EGD. Objective - Constitutional Vitals: Temp Pulse Resp BP Pulse Ox 97.4 F L 75 20 143/77 98 12/05/17 13:17 12/05/17 13:17 12/05/17 13:17 12/05/17 13:17 12/05/17 13:17 - Labs CBC & Chem 7: 12/05/17 05:46 12/05/17 05:46 Labs: Laboratory Results - last 24 hr 12/05/17 12/05/17 05:46 05:46 WBC 6.1 RBC 4.16 Hgb 12.4 Hct 36.4 MCV 88 MCH 30 MCHC 34 RDW 13.5 Plt Count 211 [place] % (Auto) Surveyor Helper Add Manual Diff Complete Total Counted 100 Seg Neuts % (Manual) 28.0 L Band Neutrophils % 35.0 Lymphocytes % (Manual) 22.0 Reactive Lymphs % (Man) 0 Monocytes % (Manual) 10.0 H Eosinophils % (Manual) 4.0 Basophils % (Manual) 0 Metamyelocytes % 1.0 Myelocytes % 0 Promyelocytes % 0 Blast Cells % 0 Nucleated RBC % Not Reportable Seg Neutrophils # Man 1.7 L Band Neutrophils # 2.1 Lymphocytes # (Manual) 1.3 Abs React Lymphs (Man) 0.0 Monocytes # (Manual) 0.6 Eosinophils # (Manual) 0.2 Basophils # (Manual) 0.0 Metamyelocytes # 0.1 Myelocytes # 0.0 Promyelocytes # 0.0 Blast Cells # 0.0 WBC Morphology Not Reportable Hypersegmented Neuts Not Reportable Hyposegmented Neuts Not Reportable Hypogranular Neuts Not Reportable Smudge Cells Not Reportable Toxic Granulation Not Reportable Toxic Vacuolation Not Reportable Dohle Bodies Not Reportable Pelger-Huet Anomaly Not Reportable Conner Rods Not Reportable Platelet Estimate Consistent w auto Clumped Platelets Not Reportable Plt Clumps, EDTA Not Reportable Large Platelets Not Reportable Giant Platelets Not Reportable Platelet Satelliting Not Reportable Plt Morphology Comment Not Reportable RBC Morphology Not Reportable Dimorphic RBCs Not Reportable Polychromasia Not Reportable Hypochromasia Not Reportable Poikilocytosis Not Reportable Anisocytosis Not Reportable Microcytosis Not Reportable Macrocytosis Not Reportable Spherocytes Not Reportable Pappenheimer Bodies Not Reportable Sickle Cells Not Reportable Target Cells Not Reportable Tear Drop Cells Not Reportable Ovalocytes Not Reportable Helmet Cells Not Reportable Roberts-Tazewell Bodies Not Reportable [place] Rings Not Reportable Rachael Cells Not Reportable Bite Cells Not Reportable Crenated Cell Not Reportable Elliptocytes Not Reportable Acanthocytes (Spur) Not Reportable Rouleaux Not Reportable Hemoglobin C Crystals Not Reportable Schistocytes Not Reportable Malaria parasites Not Reportable Aldo Bodies Not Reportable Hem Pathologist Commnt No Sodium 134 L Potassium 3.7 Chloride 99.0 Carbon Dioxide 19 L Anion Gap 20 BUN 24 H Creatinine 0.7 Estimated GFR > 60 BUN/Creatinine Ratio 34 Glucose 111 H Calcium 8.7 Total Bilirubin 0.70 AST 23 ALT 10 Alkaline Phosphatase 49 Total Protein 5.7 L Albumin 2.8 L Albumin/Globulin Ratio 1.0
[2017-12-05] MEDS ORDERED: NON-FORMULARY (Quetiapine Fumarate [Seroquel] 50 MG) PO SCH (13:15)
--- NOTE | 2017-12-05 13:15 | Progress Note ---
Assessment and Plan - Blood diarrhea: ?secondary to colitis vs ischemic colitis No evidence of acute GI bleeding, H/H stable CT of abdomen and pelvis showed extensive thickening of wall of ileum suggestive of infectious enteritis or inflammatory enteritis or ischemia follow-up stool studies Continue gentle hydration with IV fluids GI following. Continue iv flagyl and Levaquin - Prediabetes: A1c 6.2% Will follow blood sugars and commence sliding scale insulin if greater than 180 - Mild dehydration: Improving with IV fluids - Hyponatremia: Likely due to dehydration Improving with IVF - Hypertension continue with home medication - Dementia with bipolar disorder Continue on her medication that includes Seroquel and Ativan. - DVT prophylaxis with SCDs, GI prophylaxis with Protonix Subjective Date of service: 12/05/17 Principal diagnosis: GI bleed Interval history: Patient seen and examined. Complaining of abdominal pain. Denies any fever. Laboratory tests reviewed. Objective - Exam Narrative Exam: Constitutional: Well-nourished well-developed. Pleasantly confused. In no distress Head: Normocephalic atraumatic Eyes: Pupils are equal round and reactive to light Nose: No enlarged turbinates, no septal deviation. Mouth: Moist mucous membranes. Neck: Supple no thyromegaly. No bruit. No JVD Heart: Regular rate and rhythm, S1-S2 abnormal. No rubs murmurs or gallop Lungs: Clear to auscultation bilaterally no rales or rhonchi Abdomen: Soft, tender. Bowel sound are present. Extremities: No edema no cyanosis and no clubbing. Neuro: Alert oriented Oriented x1. No focal sensory or motor deficit. Pleasantly confused Skin: No rashes no hyperemic spots Psychiatry: Acute LLE cellulites - Constitutional Vitals: Vital Signs - 12hr 12/05/17 12/05/17 04:23 06:12 Temperature 98.5 F Pulse Rate 77 61 Respiratory 18 Rate Blood Pressure 103/73 O2 Sat by Pulse 95 Oximetry - Labs CBC & Chem 7: 12/05/17 05:46 12/05/17 05:46 Labs: Abnormal lab results 12/05/17 12/05/17 Range/Units 05:46 05:46 Seg Neuts % (Manual) 28.0 L (40.0-70.0) % Monocytes % (Manual) 10.0 H (0.0-7.3) % Seg Neutrophils # Man 1.7 L (1.8-7.7) K/mm3 Sodium 134 L (137-145) mmol/L Carbon Dioxide 19 L (22-30) mmol/L BUN 24 H (7-17) mg/dL Glucose 111 H (65-100) mg/dL Total Protein 5.7 L (6.3-8.2) g/dL Albumin 2.8 L (3.9-5) g/dL
[2017-12-05] MEDS: PROCARDIA XL PO SCH (13:57)
[2017-12-05] MEDS: ATIVAN PO SCH ×2 (14:01→22:19)
[2017-12-05] MEDS: SODIUM CHLORIDE FLUSH SYRINGE 10 ML IV SCH (14:02)
[2017-12-05] MEDS ORDERED: NON-FORMULARY (Carvedilol 3.125 MG) PO SCH (22:00)
[2017-12-05] MEDS ORDERED: QUETIAPINE FUMARATE 100 MG PO SCH (22:00)
[2017-12-05] MEDS ORDERED: NON-FORMULARY (Atorvastatin 20 MG) PO SCH (22:00)
[2017-12-05] MEDS: COREG PO SCH (22:18)
[2017-12-06] MEDS: NACL 0.9% 1000 ML 1,000 ML IV SCH (03:29)
[2017-12-06 07:23] LABS: Alanine Aminotransferase 10 units/L (7-56); Albumin 3.1 g/dL (3.9-5); BUN/Creatinine Ratio 21; Blood Urea Nitrogen 15 mg/dL (7-17); Calcium 8.9 mg/dL (8.4-10.2); Hemolysis Index 1
--- NOTE | 2017-12-06 10:28 | Gastroenterology Progress Note ---
<ANNAHANH PotterGeorgette - Last Filed: 12/06/17 10:30> Assessment and Plan 1.colitis -afebrile -WBC-WNL -H/H -WNL -lipase pending -stool with few WBCs- Cdiff and culture pending -no active signs of bleeding -abd CT showed extensive thickening of the wall of the ileum, may be due to infectious enteritis, inflammatory enteritis, or ischemia -last colonoscopy per daughter (Mamie [phone]) was approx [address] [facility] [place] that revealed diverticulosis -etiology- likely infectious or toxic enteritis, ischemia less likely -clinically, patient reports abd pain is now improving but c/o nausea -will consider EGD based on progress -if abd pain persists or worsens consider repeat CT, otherwise repeat in 2-3wks to ensure resolution of enteritis -monitor labs -continue antibiotics, PPI, and supportive care -will follow - Subjective Date of service: 12/06/17 Principal diagnosis: GI bleed Interval history: Patient w/o acute distress. Reports abd pain now improving but c/o nausea this am. No episodes of vomiting. Diarrhea resolved with BM x 1 with formed brown stool per nursing. Objective - Constitutional Vitals: Temp Pulse Resp BP Pulse Ox 98.6 F 116 H 20 157/90 90 12/06/17 05:24 12/06/17 05:24 12/06/17 05:24 12/06/17 05:24 12/06/17 05:24 General appearance: no acute distress - Respiratory Respiratory: bilateral: CTA (anterior) - Cardiovascular Rhythm: other (tachycardia) Heart Sounds: Present: S1 & S2 - Gastrointestinal General gastrointestinal: Present: soft, tender (mild generalized TTP), non- distended, normal bowel sounds - Neurologic Neurological: oriented to person - Labs CBC & Chem 7: 12/05/17 05:46 12/06/17 06:24 Labs: Laboratory Results - last 24 hr 12/05/17 12/06/17 21:43 06:24 Sodium 136 L Potassium 3.6 Chloride 100.4 Carbon Dioxide 22 Anion Gap 17 BUN 15 Creatinine 0.7 Estimated GFR > 60 BUN/Creatinine Ratio 21 Glucose 127 H POC Glucose 144 H Calcium 8.9 Total Bilirubin 0.40 AST 18 ALT 10 Alkaline Phosphatase 47 Total Protein 5.8 L Albumin 3.1 L Albumin/Globulin Ratio 1.1 <ALISSA,COREY R - Last Filed: 12/06/17 20:46> Assessment and Plan Pt has ongoing complaints of nausea precluding eating. Etiology unclear. Will do EGD tomorrow if daughter consents. Objective - Constitutional Vitals: Temp Pulse Resp BP Pulse Ox 96.3 F L 105 H 18 98/68 86 12/06/17 17:22 12/06/17 17:22 12/06/17 17:22 12/06/17 17:22 12/06/17 17:22 - Labs CBC & Chem 7: 12/05/17 05:46 12/06/17 06:24 Labs: Laboratory Results - last 24 hr 12/05/17 12/06/17 12/06/17 21:43 06:24 06:24 Sodium 136 L Potassium 3.6 Chloride 100.4 Carbon Dioxide 22 Anion Gap 17 BUN 15 Creatinine 0.7 Estimated GFR > 60 BUN/Creatinine Ratio 21 Glucose 127 H POC Glucose 144 H Calcium 8.9 Total Bilirubin 0.40 AST 18 ALT 10 Alkaline Phosphatase 47 Total Protein 5.8 L Albumin 3.1 L Albumin/Globulin Ratio 1.1 Lipase 59
[2017-12-06] MEDS: ATIVAN PO SCH ×2 (11:22→23:52)
[2017-12-06] MEDS: COREG PO SCH (11:22)
[2017-12-06] MEDS: PROCARDIA XL PO SCH (11:23)
[2017-12-06] MEDS: SODIUM CHLORIDE FLUSH SYRINGE 10 ML IV SCH (11:23)
[2017-12-06] MEDS: PROTONIX PO SCH (11:23)
[2017-12-06] MEDS: LEVAQUIN 500MG/100ML 500 MG/100 ML BAG IV SCH (11:46)
--- NOTE | 2017-12-06 12:00 | Progress Note ---
Assessment and Plan - Bloody diarrhea - resolving - Acute metabolic encephalopathy - Wheezing - Prediabetes with A1c of 6.2% - Mild dehydration. BUN of 31 Discontinue IV hydration Obtain CT angiography of the chest because of the wheezing Blood, cx, negative blood cultures so far Trend glucose level and commence sliding scale insulin if glucose level is greater than 180 CT scan of the abdomen and pelvis after adequate hydration - she would 1. Extensive thickening of the wall of the ileum may be due to infectious enteritis, inflammatory enteritis or ischemia however the abdomen tenderness makes it less likely ischemia though the patient has an extensive atherosclerotic disease GI following DVT prophylaxis with SCDs. We'll commence Lovenox since no more evidence of GI bleeding Only Subjective Date of service: 12/06/17 Principal diagnosis: GI bleed Interval history: Patient seen and examined. No complaints of abdominal pain. Discussed with patient's nurse.Said that patient is slightly wheezing. Non-observed during my physical examination. Laboratory tests reviewed. Objective - Exam Narrative Exam: Constitutional: Well-nourished well-developed. Pleasantly confused. In no distress Head: Normocephalic atraumatic Eyes: Pupils are equal round and reactive to light Nose: No enlarged turbinates, no septal deviation. Mouth: Moist mucous membranes. Neck: Supple no thyromegaly. No bruit. No JVD Heart: Regular rate and rhythm, S1-S2 abnormal. No rubs murmurs or gallop Lungs: Decreased breath sounds bilaterally. no rales or rhonchi Abdomen: Soft, nontender. Bowel sound are present. Extremities: No edema no cyanosis and no clubbing. Neuro: Alert oriented Oriented x1. No focal sensory or motor deficit. Pleasantly confused Skin: No rashes no hyperemic spots Psychiatry: Pleasantly Confused. - Constitutional Vitals: Vital Signs - 12hr 12/06/17 12/06/17 05:24 11:22 Temperature 98.6 F Pulse Rate 116 H Respiratory 20 Rate Blood Pressure 157/90 108/61 O2 Sat by Pulse 90 Oximetry - Labs CBC & Chem 7: 12/07/17 05:25 12/07/17 05:25 Labs: Abnormal lab results 12/05/17 12/06/17 Range/Units 21:43 06:24 Sodium 136 L (137-145) mmol/L Glucose 127 H (65-100) mg/dL POC Glucose 144 H (70-105) Total Protein 5.8 L (6.3-8.2) g/dL Albumin 3.1 L (3.9-5) g/dL
[2017-12-06] MEDS: ZOFRAN IV PRN ×2 (13:47→23:53)
[2017-12-06] MEDS: FLAGYL 500 MG/100 ML 500 MG/100 ML BAG IV SCH ×3 (13:48→23:52)
--- NOTE | 2017-12-06 21:46 | Cat Scan Report ---
FINAL REPORT PROCEDURE: CT ANGIO CHEST TECHNIQUE: Computerized tomographic angiography of the chest was performed after the IV injection of iodinated nonionic contrast including image processing. The image data was postprocessed using 2-dimensional multiplanar reformatted (MPR) and 3-dimensional (MIP and/or volume rendered) techniques. HISTORY: wheezind and shortness of breath COMPARISON: No prior studies are available for comparison. FINDINGS: Ascending aorta is 4 centimeters in diameter without evidence of any dissection. Bilateral pulmonary arteries and their branches demonstrate normal opacification without filling defects. Multiple calcified nodules are noted in bilateral lungs with areas of scarring involving bilateral lower lobes. Large calcified lymph nodes are identified involving mediastinum and bilateral hilar structures. Minimal degree pericardial effusion is noted. There is mild degree ascites. A few loops of bowel with air-fluid levels are noted in the abdomen. There is mild degree perihepatic fluid. Residual fluid is noted in the stomach. Moderate to severe degree marginal osteophyte formation is noted involving the thoracic and lumbar spine. IMPRESSION: No evidence of pulmonary embolism Ascending aorta measures 4 centimeters in diameter without evidence of dissection Calcified nodules in bilateral lungs and the mediastinal and hilar calcified lymph nodes are consistent with old healed granulomatous disease. No acute pulmonary process. Mild degree perihepatic ascites Air-fluid levels in a few visualized bowel loops in the abdomen may represent ileus versus obstruction.
[2017-12-07] MEDS: COREG PO SCH ×2 (00:08→10:13)
[2017-12-07] MEDS: SODIUM CHLORIDE FLUSH SYRINGE 10 ML IV SCH ×3 (00:09→23:27)
[2017-12-07 06:01] LABS: Hematocrit 38.1 % (30.3-42.9); Hemoglobin 13.1 gm/dl (10.1-14.3); Mean Corpuscular HGB Conc 34 % (30-34); Mean Corpuscular Hemoglobin 30 pg (28-32); Mean Corpuscular Volume 87 fl (79-97); Platelet Count 255 K/mm3 (140-440); Red Blood Count 4.37 M/mm3 (3.65-5.03); Red Cell Distribution Width 13.6 % (13.2-15.2)
[2017-12-07] MEDS: FLAGYL 500 MG/100 ML 500 MG/100 ML BAG IV SCH ×3 (06:11→23:23)
[2017-12-07 06:26] LABS: Alanine Aminotransferase 8 units/L (7-56); Albumin 2.8 g/dL (3.9-5); BUN/Creatinine Ratio 20; Blood Urea Nitrogen 14 mg/dL (7-17); Calcium 8.5 mg/dL (8.4-10.2); Hemolysis Index 6
--- NOTE | 2017-12-07 08:30 | Progress Note ---
Assessment and Plan - Bloody diarrhea - resolving - Acute metabolic encephalopathy - Wheezing CTA chest showd no PE - Prediabetes with A1c of 6.2% - Mild dehydration. BUN of 31 - hypotensive - Hypokalemia IV hydration CT angiography of the chest showed no PE Blood, cx, negative blood cultures so far Trend glucose level and commence sliding scale insulin if glucose level is greater than [address] scan of the abdomen and pelvis ordered. Supplement K, check Mg CT abdomen and pelvis of 12/03/17 showed 1. Extensive thickening of the wall of the ileum may be due to infectious enteritis, inflammatory enteritis or ischemia. However the abdomen tenderness makes it less likely ischemia though the patient has an extensive atherosclerotic disease GI following DVT prophylaxis with SCDs. We'll commence Lovenox since no more evidence of GI bleeding Only Discussed at length with pt's Daughter Gabriela. aAll questions answered. Subjective Date of service: 12/07/17 Principal diagnosis: GI bleed Interval history: Patient seen and examined. Discussed with patient's nurse.Said that patient is slightly wheezing. Non-observed during my physical examination. Laboratory tests reviewed. Objective - Exam Narrative Exam: Constitutional: Well-nourished well-developed.Pleasantly confused. In no distress Head: Normocephalic atraumatic Eyes: Pupils are equal round and reactive to light Nose: No enlarged turbinates, no septal deviation. Mouth: Moist mucous membranes. Neck: Supple no thyromegaly. No bruit. No JVD Heart: Regular rate and rhythm, S1-S2 abnormal. No rubs murmurs or gallop Lungs: Decreased breath sounds bilaterally. no rales or rhonchi Abdomen: Soft, nontender. Bowel sound are present. Extremities: No edema no cyanosis and no clubbing. Neuro: Alert oriented Oriented x1. No focal sensory or motor deficit. Pleasantly confused Skin: No rashes no hyperemic spots Psychiatry: Pleasantly Confused. - Constitutional Vitals: Vital Signs - 12hr 12/06/17 12/07/17 12/07/17 22:00 00:01 00:08 Temperature Pulse Rate 80 Respiratory 16 Rate Blood Pressure 81/43 81/43 O2 Sat by Pulse Oximetry 12/07/17 06:13 Temperature 98.8 F Pulse Rate 120 H Respiratory 16 Rate Blood Pressure 79/52 O2 Sat by Pulse 94 Oximetry - Labs CBC & Chem 7: 12/07/17 05:25 12/07/17 05:25 Labs: Abnormal lab results 12/07/17 Range/Units 05:25 Sodium 134 L (137-145) mmol/L Potassium 3.1 L (3.6-5.0) mmol/L Carbon Dioxide 21 L (22-30) mmol/L Glucose 110 H (65-100) mg/dL Total Protein 5.5 L (6.3-8.2) g/dL Albumin 2.8 L (3.9-5) g/dL
[2017-12-07 08:56] LABS: Band Neutrophils # (Manual) 0.1 K/mm3; Basophils % (Manual) 0 % (0.0-1.8); Platelet Estimate Consistent w Auto; Total Cells Counted 100
[2017-12-07] MEDS ORDERED: D5/0.45NS 1,000 ML IV SCH (09:00)
[2017-12-07] MEDS ORDERED: KCL 20MEQ/100ML 20 MEQ/100 ML BAG IV SCH (09:00)
--- NOTE | 2017-12-07 09:45 | Gastroenterology Progress Note ---
<HANH CASTILLO - Last Filed: 12/07/17 09:59> Assessment and Plan 1.colitis -afebrile -WBC-WNL -H/H -WNL -lipase WNL -stool with few WBCs, stool culture negative, c-diff pending -No BM overnight or this am-no active signs of bleeding -abd CT 12/03-showed extensive thickening of the wall of the ileum, may be due to infectious enteritis, inflammatory enteritis, or ischemia -last colonoscopy per daughter (Mamie [phone]) was approx 1 yr ago at [facility] [place] that revealed diverticulosis -etiology- likely infectious or toxic enteritis, ischemia less likely -clinically, patient is now hypotensive with tachycardia and persistent N/V. Abd pain slightly improved -CTA of chest- negative for PE but showed possible ileus vs obstruction -cancel EGD for today -will order CTA of abdomen to r/o obstruction vs vascular process -recommend surgery consult -keep NPO -NGT to LIS -monitor vital signs closely, low threshold to transfer to ICU for closer monitoring and presser support (if SBP<80) -lactic acid now, continue to trend labs -continue antibiotics, PPI, and supportive care -will follow Subjective Date of service: 12/07/17 Principal diagnosis: GI bleed Interval history: Patient in mild distress with current hypotension. States she is not feeling well with continued nausea. Multiple episodes of vomiting overnight per nursing with non-bloody bilious emesis. Reports abd pain is still present but slightly improved. Objective - Constitutional Vitals: Temp Pulse Resp BP Pulse Ox 98.8 F 120 H 16 79/52 94 12/07/17 06:13 12/07/17 06:13 12/07/17 06:13 12/07/17 06:13 12/07/17 06:13 General appearance: mild distress - Respiratory Respiratory: bilateral: diminished - Cardiovascular Rhythm: other (tachycardia) Heart Sounds: Present: S1 & S2 - Gastrointestinal General gastrointestinal: Present: soft, tender (mild generalized), distended ( slightly), normal bowel sounds - Neurologic Neurological: oriented to person - Labs CBC & Chem 7: 12/07/17 05:25 12/07/17 05:25 Labs: Laboratory Results - last 24 hr 12/06/17 12/07/17 12/07/17 06:24 05:25 05:25 WBC 5.9 RBC 4.37 Hgb 13.1 Hct 38.1 MCV 87 MCH 30 MCHC 34 RDW 13.6 Plt Count 255 Add Manual Diff Complete Total Counted 100 Seg Neuts % (Manual) 69.0 Band Neutrophils % 2.0 Lymphocytes % (Manual) 18.0 Reactive Lymphs % (Man) 0 Monocytes % (Manual) 9.0 H Eosinophils % (Manual) 2.0 Basophils % (Manual) 0 Metamyelocytes % 0 Myelocytes % 0 Promyelocytes % 0 Blast Cells % 0 Nucleated RBC % Not Reportable Seg Neutrophils # Man 4.1 Band Neutrophils # 0.1 Lymphocytes # (Manual) 1.1 L Abs React Lymphs (Man) 0.0 Monocytes # (Manual) 0.5 Eosinophils # (Manual) 0.1 Basophils # (Manual) 0.0 Metamyelocytes # 0.0 Myelocytes # 0.0 Promyelocytes # 0.0 Blast Cells # 0.0 WBC Morphology Not Reportable Hypersegmented Neuts Not Reportable Hyposegmented Neuts Not Reportable Hypogranular Neuts Not Reportable Smudge Cells Not Reportable Toxic Granulation Not Reportable Toxic Vacuolation Not Reportable Dohle Bodies Not Reportable Pelger-Huet Anomaly Not Reportable Conner Rods Not Reportable Platelet Estimate Consistent w auto Clumped Platelets Not Reportable Plt Clumps, EDTA Not Reportable Large Platelets Not Reportable Giant Platelets Not Reportable Platelet Satelliting Not Reportable Plt Morphology Comment Not Reportable RBC Morphology Not Reportable Dimorphic RBCs Not Reportable Polychromasia Not Reportable Hypochromasia Not Reportable Poikilocytosis Not Reportable Anisocytosis Not Reportable Microcytosis Not Reportable Macrocytosis Not Reportable Spherocytes Not Reportable Pappenheimer Bodies Not Reportable Sickle Cells Not Reportable Target Cells Not Reportable Tear Drop Cells Not Reportable Ovalocytes Not Reportable Helmet Cells Not Reportable [place] Bodies Not Reportable [place] Rings Not Reportable Rachael Cells Not Reportable Bite Cells Not Reportable Crenated Cell Not Reportable Elliptocytes Not Reportable Acanthocytes (Spur) Not Reportable Rouleaux Not Reportable Hemoglobin C Crystals Not Reportable Schistocytes Not Reportable Malaria parasites Not Reportable Aldo Bodies Not Reportable Hem Pathologist Commnt No Sodium 134 L Potassium 3.1 L Chloride 101.0 Carbon Dioxide 21 L Anion Gap 15 BUN 14 Creatinine 0.7 Estimated GFR > 60 BUN/Creatinine Ratio 20 Glucose 110 H Calcium 8.5 Total Bilirubin 0.40 AST 15 ALT 8 Alkaline Phosphatase 45 Total Protein 5.5 L Albumin 2.8 L Albumin/Globulin Ratio 1.0 Lipase 59 <COREY MAXWELL R - Last Filed: 12/07/17 17:43> Assessment and Plan Pt better now in ICU. Hypotension and ongoing GI symptoms without clear etiology most c/w prolonged infectious, likely viral, process . However, vascular etiology needs to be considered given the hypotension in elderly population. CT pending. Surgical consult noted. Discussed with Dr. Kilpatrick. Objective - Constitutional Vitals: Temp Pulse Resp BP Pulse Ox 98.8 F 113 H 16 83/50 94 12/07/17 06:13 12/07/17 09:30 12/07/17 09:30 12/07/17 09:30 12/07/17 06:13 - Labs CBC & Chem 7: 12/07/17 05:25 12/07/17 05:25 Labs: Laboratory Results - last 24 hr 12/07/17 12/07/17 12/07/17 05:25 05:25 12:18 WBC 5.9 RBC 4.37 Hgb 13.1 Hct 38.1 MCV 87 MCH 30 MCHC 34 RDW 13.6 Plt Count 255 Add Manual Diff Complete Total Counted 100 Seg Neuts % (Manual) 69.0 Band Neutrophils % 2.0 Lymphocytes % (Manual) 18.0 Reactive Lymphs % (Man) 0 Monocytes % (Manual) 9.0 H Eosinophils % (Manual) 2.0 Basophils % (Manual) 0 Metamyelocytes % 0 Myelocytes % 0 Promyelocytes % 0 Blast Cells % 0 Nucleated RBC % Not Reportable Seg Neutrophils # Man 4.1 Band Neutrophils # 0.1 Lymphocytes # (Manual) 1.1 L Abs React Lymphs (Man) 0.0 Monocytes # (Manual) 0.5 Eosinophils # (Manual) 0.1 Basophils # (Manual) 0.0 Metamyelocytes # 0.0 Myelocytes # 0.0 Promyelocytes # 0.0 Blast Cells # 0.0 WBC Morphology Not Reportable Hypersegmented Neuts Not Reportable Hyposegmented Neuts Not Reportable Hypogranular Neuts Not Reportable Smudge Cells Not Reportable Toxic Granulation Not Reportable Toxic Vacuolation Not Reportable Dohle Bodies Not Reportable Pelger-Huet Anomaly Not Reportable Conner Rods Not Reportable Platelet Estimate Consistent w auto Clumped Platelets Not Reportable Plt Clumps, EDTA Not Reportable Large Platelets Not Reportable Giant Platelets Not Reportable Platelet Satelliting Not Reportable Plt Morphology Comment Not Reportable RBC Morphology Not Reportable Dimorphic RBCs Not Reportable Polychromasia Not Reportable Hypochromasia Not Reportable Poikilocytosis Not Reportable Anisocytosis Not Reportable Microcytosis Not Reportable Macrocytosis Not Reportable Spherocytes Not Reportable Pappenheimer Bodies Not Reportable Sickle Cells Not Reportable Target Cells Not Reportable Tear Drop Cells Not Reportable Ovalocytes Not Reportable Helmet Cells Not Reportable [place] Bodies Not Reportable [place] Rings Not Reportable Rachael Cells Not Reportable Bite Cells Not Reportable Crenated Cell Not Reportable Elliptocytes Not Reportable Acanthocytes (Spur) Not Reportable Rouleaux Not Reportable Hemoglobin C Crystals Not Reportable Schistocytes Not Reportable Malaria parasites Not Reportable Aldo Bodies Not Reportable Hem Pathologist Commnt No Sodium 134 L Potassium 3.1 L Chloride 101.0 Carbon Dioxide 21 L Anion Gap 15 BUN 14 Creatinine 0.7 Estimated GFR > 60 BUN/Creatinine Ratio 20 Glucose 110 H Lactic Acid 0.90 Calcium 8.5 Total Bilirubin 0.40 AST 15 ALT 8 Alkaline Phosphatase 45 Total Protein 5.5 L Albumin 2.8 L Albumin/Globulin Ratio 1.0
[2017-12-07] MEDS: ATIVAN PO SCH ×2 (10:13→23:23)
[2017-12-07] MEDS: PROCARDIA XL PO SCH (10:20)
[2017-12-07] MEDS: PROTONIX PO SCH (10:20)
[2017-12-07] MEDS: LEVAQUIN 500MG/100ML 500 MG/100 ML BAG IV SCH (10:20)
[2017-12-07] MEDS: KCL 10MEQ/100ML 10 MEQ/100 ML BAG IV SCH ×4 (11:05→14:10)
[2017-12-07] MEDS ORDERED: NACL 0.9% 1000 ML 1,000 ML IV SCH (12:00)
[2017-12-07] MEDS ORDERED: NACL 0.9% 500 ML 500 ML IV ONE (12:09)
--- NOTE | 2017-12-07 14:17 | Consultation ---
History of Present Illness Consult date: 12/07/17 Chief complaint: abd pain, n/v - History of present illness History of present illness: 87 yo F with hx of dementia presents to ER with c/o abd pain, n/v. Pt states the abdominal pain is located near the umbilicus and does not radiate. She states she has not had a BM or passed flatus. She is hungry. She is a poor historian and the rest of the history is obtained from the chart. The patient was sent to the ER from her personal nursing home with abd pain, bloody diarrhea x2 days. This was associated with low grade fevers, n/v. The patient was found to have enteritis on CT scan A/P and was admitted for IVF, abx , and further GI workup. Surgery is consulted to evaluate the patient for possible ischemic bowel. The patient was upgraded to the ICU today for hypotension. She apparently had a BM 2 days ago according to nursing records. Per the patient's daughter Mamie, the patient had several episodes of nausea and emesis last night. She has been afebrile while in the hospital. Past History Past Medical History: diabetes, hypertension, other (vascular dementia, bipolar disorder) Past Surgical History: No surgical history Social history: denies: smoking, alcohol abuse, prescription drug abuse Family history: no significant family history Medications and Allergies Allergies Allergy/AdvReac Type Severity Reaction Status Date / Time codeine Allergy Unknown Verified 12/03/17 17:13 FANTA Inhibitors AdvReac Unknown Verified 12/03/17 11:12 morphine AdvReac Unknown Verified 12/03/17 11:12 Sulfa (Sulfonamide AdvReac Unknown Verified 12/03/17 17:13 Antibiotics) Home Medications Medication Instructions Recorded Confirmed Last Taken Type Aspirin EC [Aspirin Enteric Coated 81 mg PO QDAY 12/03/17 12/03/17 Unknown History TAB] AtorvaSTATin 20 mg PO HS 12/03/17 12/03/17 Unknown History Carvedilol 3.125 mg PO BID 12/03/17 12/03/17 Unknown History LORazepam [Ativan] 1 mg PO BID 12/03/17 12/03/17 Unknown History Metformin HCl [Glucophage] 500 mg PO HS 12/03/17 12/03/17 Unknown History NIFEdipine [Nifedipine ER] 60 mg PO QDAY 12/03/17 12/03/17 Unknown History QUEtiapine Fumarate 100 mg PO HS 12/03/17 12/03/17 Unknown History Quetiapine Fumarate [SEROquel] 50 mg PO QDAY 12/03/17 12/03/17 Unknown History risperiDONE [Risperdal] 0.5 mg PO HS 12/03/17 12/03/17 Unknown History Active Meds: Active Medications Acetaminophen (Tylenol) 650 mg PO Q6H PRN PRN Reason: Pain, Mild (1-3) Last Admin: 12/04/17 22:35 Dose: 650 mg Atorvastatin Calcium (Lipitor) 20 mg PO QHS [facility] Last Admin: 12/06/17 23:52 Dose: 20 mg Carvedilol (Coreg) 3.125 mg PO BID [facility] Last Admin: 12/07/17 10:13 Dose: Not Given Levofloxacin/Dextrose (Levaquin 500mg/100ml) 500 mg in 100 mls @ 100 mls/hr IV Q24HR [facility]; Protocol Last Admin: 12/07/17 10:20 Dose: 100 mls/hr Metronidazole (Flagyl 500 Mg/100 Ml) 500 mg in 100 mls @ 100 mls/hr IV Q8HR [facility] ; Protocol Last Admin: 12/07/17 06:11 Dose: 100 mls/hr Potassium Chloride/Dextrose/Sod Cl (D5w/Ns W/Kcl 20meq) 20 meq in 1,000 mls @ 150 mls/hr IV DIRECT PARAMJIT Sodium Chloride (Nacl 0.9% 1000 Ml) 1,000 mls @ 50 mls/hr IV DIRECT PARAMJIT Lorazepam (Ativan) 1 mg PO BID [facility] Last Admin: 12/07/17 10:13 Dose: Not Given Nifedipine (Procardia Xl) 60 mg PO QDAY [facility] Last Admin: 12/07/17 10:20 Dose: Not Given Ondansetron HCl (Zofran) 4 mg IV Q4H PRN PRN Reason: Nausea And Vomiting Last Admin: 12/06/17 23:53 Dose: 4 mg Pantoprazole Sodium (Protonix) 40 mg PO DAILY [facility] Last Admin: 12/07/17 10:20 Dose: Not Given Quetiapine Fumarate (Seroquel) 100 mg PO QHS [facility] Last Admin: 12/06/17 23:53 Dose: 100 mg Quetiapine Fumarate (Seroquel) 50 mg PO QAM [facility] Last Admin: 12/07/17 10:21 Dose: Not Given Sodium Chloride (Sodium Chloride Flush Syringe 10 Ml) 10 ml IV BID [facility] Last Admin: 12/07/17 10:21 Dose: 10 ml Sodium Chloride (Sodium Chloride Flush Syringe 10 Ml) 10 ml IV PRN PRN PRN Reason: LINE FLUSH Review of Systems All systems: negative (10 pt ROS performed and negative except for that listed in HPI) Exam Vital Signs Temp Resp BP 99.5 F 19 73/52 12/03/17 13:19 12/03/17 13:19 12/03/17 13:19 Narrative exam: Gen: AAOx3. NAD ENT; no conjunctival pallor or scleral icterus CV: S1, S2+. tachy Resp: CTAB, no w/r/r Abd: soft, mildly distended, moderate TTP in RUQ and RLQ. no r/r/g. no peritoneal signs Ext: no c/c/e Results - Labs 12/07/17 05:25 12/07/17 05:25 Abnormal lab results 12/07/17 12/07/17 Range/Units 05:25 05:25 Monocytes % (Manual) 9.0 H (0.0-7.3) % Lymphocytes # (Manual) 1.1 L (1.2-5.4) K/mm3 Sodium 134 L (137-145) mmol/L Potassium 3.1 L (3.6-5.0) mmol/L Carbon Dioxide 21 L (22-30) mmol/L Glucose 110 H (65-100) mg/dL Total Protein 5.5 L (6.3-8.2) g/dL Albumin 2.8 L (3.9-5) g/dL Diabetes panel 12/07/17 Range/Units 05:25 Sodium 134 L (137-145) mmol/L Potassium 3.1 L (3.6-5.0) mmol/L Chloride 101.0 (98-107) mmol/L Carbon Dioxide 21 L (22-30) mmol/L BUN 14 (7-17) mg/dL Creatinine 0.7 (0.7-1.2) mg/dL Glucose 110 H (65-100) mg/dL Calcium 8.5 (8.4-10.2) mg/dL AST 15 (5-40) units/L ALT 8 (7-56) units/L Alkaline Phosphatase 45 (35-129) units/L Total Protein 5.5 L (6.3-8.2) g/dL Albumin 2.8 L (3.9-5) g/dL Calcium panel 12/07/17 Range/Units 05:25 Calcium 8.5 (8.4-10.2) mg/dL Albumin 2.8 L (3.9-5) g/dL Pituitary panel 12/07/17 Range/Units 05:25 Sodium 134 L (137-145) mmol/L Potassium 3.1 L (3.6-5.0) mmol/L Chloride 101.0 (98-107) mmol/L Carbon Dioxide 21 L (22-30) mmol/L BUN 14 (7-17) mg/dL Creatinine 0.7 (0.7-1.2) mg/dL Glucose 110 H (65-100) mg/dL Calcium 8.5 (8.4-10.2) mg/dL Adrenal panel 12/07/17 Range/Units 05:25 Sodium 134 L (137-145) mmol/L Potassium 3.1 L (3.6-5.0) mmol/L Chloride 101.0 (98-107) mmol/L Carbon Dioxide 21 L (22-30) mmol/L BUN 14 (7-17) mg/dL Creatinine 0.7 (0.7-1.2) mg/dL Glucose 110 H (65-100) mg/dL Calcium 8.5 (8.4-10.2) mg/dL Total Bilirubin 0.40 (0.1-1.2) mg/dL AST 15 (5-40) units/L ALT 8 (7-56) units/L Alkaline Phosphatase 45 (35-129) units/L Total Protein 5.5 L (6.3-8.2) g/dL Albumin 2.8 L (3.9-5) g/dL - Imaging Abdominal x-ray: report reviewed, image reviewed CT scan - abdomen: report reviewed, image reviewed CT scan - pelvis: report reviewed, image reviewed Assessment and Plan 87 yo F with 1. enteritis - infection vs inflammatory vs ischemic 2. hypotension, tachycardia 3. hypovolemia 4. hypokalemia 5. ileus Ct scan A/P reviewed - thickening and inflammation of ileum. Mesenteric vessels appear patent Obstruction series - ileus Plan: 1. monitor in ICU 2. Hypotension improved with NS boluses - continue IVF @ 150cc/hr 3. strict I/Os - if cannot accurately measure urine output with bedpan, jackson should be placed 4. recommend NGT for ileus, continue to LCWS - discussed with nursing 5. DVT ppx 6. prn pain and nausea control 7. antibiotics - levaquin and flagyl 8. keep NPO 9. replace K 10. CBC, BMP in am Based on the patient's current status I feel that ischemia of the bowel is low on the differential. Lactate 0.9 and WBC has been within normal limits. Recommend continuing supportive care as above. Will follow with you. I spoke with the patient's daughter Mamie over the telephone and updated her of the surgical consult and plan. She understands, all questions answered. Thank you for this consultation, please call with questions or concerns.
--- NOTE | 2017-12-07 14:27 | XRay Report ---
ABDOMINAL SERIES: History: Ileus versus small bowel obstruction. CT abdomen pelvis with contrast performed 12/03/[address] suggested a moderate enteritis. Abdominal series demonstrates moderate gas within small bowel loops and colon. The overall pattern is most suggestive of an ileus. No evidence for free air or large air-fluid levels. Mild cardiomegaly is noted. There are multiple calcified lymph nodes in the mediastinum and scattered calcified granulomas in the lungs consistent with chronic granulomatous disease. IMPRESSION: Probable ileus. See above. Mild cardiomegaly.
[2017-12-07] MEDS ORDERED: VANCOMYCIN/NS 1 GM/250 ML 1 GM/250 ML BAG IV SCH (17:00)
[2017-12-07] MEDS ORDERED: VANCOMYCIN PHARMACY TO DOSE IV SCH (17:00)
[2017-12-07] MEDS: D5W/NS W/KCL 20MEQ 20 MEQ/1,000 ML BAG IV SCH (17:14)
[2017-12-07] MEDS ORDERED: VANCOMYCIN 1,500 MG in NACL 0.9% 500 ML 500 ML IV SCH (18:00)
[2017-12-07] MEDS ORDERED: ATIVAN IV STA (19:03)
--- NOTE | 2017-12-07 21:46 | XRay Report ---
FINAL REPORT PROCEDURE: XR ABDOMEN 1V AP TECHNIQUE: Abdominal radiograph, single supine AP view. HISTORY: NG tube placement COMPARISON: No prior studies are available for comparison. FINDINGS: Bowel gas pattern:Intestinal gas is distributed in multiple borderline distended small bowel loops. There is no large bowel distension. Nasogastric tube is terminating in the stomach.. Masses or calcifications:None. Bony structures:Stabilization hardware is identified from L4-S1 levels with evidence of prior laminectomy from L3-L5.. Other:None. IMPRESSION: Borderline small bowel distension may represent ileus versus early intestinal obstruction. Follow-up studies are recommended. Nasogastric tube is terminating in the stomach.
[2017-12-08] MEDS: COREG PO SCH ×3 (04:10→23:12)
[2017-12-08] MEDS: FLAGYL 500 MG/100 ML 500 MG/100 ML BAG IV SCH ×3 (06:15→23:12)
[2017-12-08 08:50] LABS: Alanine Aminotransferase 9 units/L (7-56); Albumin 2.6 g/dL (3.9-5); BUN/Creatinine Ratio 10; Blood Urea Nitrogen 7 mg/dL (7-17); Calcium 7.8 mg/dL (8.4-10.2); Hemolysis Index 57
--- NOTE | 2017-12-08 09:49 | Gastroenterology Progress Note ---
Assessment and Plan GI: pt presented w/ nausea, vomiting w/ negative ct scan, now w/ sign ileus on x -ray - pt BP more improved - surgery input noted, signs not consistent w/ gut - continue conservative management for now including NPO, iv fluids - no plans to scope at this time - await further surgery input - will follow Subjective Date of service: 12/08/17 Principal diagnosis: GI bleed Interval history: - pt w/o problems overnight per staff. BP more stable Objective - Constitutional Vitals: Temp Pulse Resp BP Pulse Ox 97.5 F L 108 H 14 141/72 92 12/07/17 23:28 12/08/17 06:00 12/08/17 06:00 12/07/17 21:11 12/08/17 06:00 General appearance: no acute distress - EENT Eyes: PERRL - Respiratory Respiratory: bilateral: CTA - Cardiovascular Rhythm: regular Heart Sounds: Present: S1 & S2 - Gastrointestinal General gastrointestinal: Present: soft, non-tender, non-distended - Labs CBC & Chem 7: 12/07/17 05:25 12/08/17 07:30 Labs: Laboratory Results - last 24 hr 12/07/17 12/08/17 12/08/17 12:18 00:05 05:26 Sodium Potassium Chloride Carbon Dioxide Anion Gap BUN Creatinine Estimated GFR BUN/Creatinine Ratio Glucose POC Glucose 139 H 176 H Lactic Acid 0.90 Calcium Phosphorus Magnesium Total Bilirubin AST ALT Alkaline Phosphatase Total Protein Albumin Albumin/Globulin Ratio 12/08/17 07:30 Sodium 140 Potassium 3.8 D Chloride 105.1 Carbon Dioxide 23 Anion Gap 16 BUN 7 Creatinine 0.7 Estimated GFR > 60 BUN/Creatinine Ratio 10 Glucose 171 H POC Glucose Lactic Acid Calcium 7.8 L Phosphorus 1.40 L Magnesium 1.40 L Total Bilirubin 0.30 AST 19 ALT 9 Alkaline Phosphatase 42 Total Protein 4.5 L Albumin 2.6 L Albumin/Globulin Ratio 1.4
--- NOTE | 2017-12-08 12:48 | Progress Note ---
Assessment and Plan - Patient Problems (1) Abdominal pain Current Visit: Yes Status: Acute Qualifiers: Abdominal location: unspecified location Qualified Code(s): R10.9 - Unspecified abdominal pain Plan to address problem: Patient stable. Her abdominal exam is very benign. Except for the tachycardia , I do not see any other significant signs to suggest compromised intestine. I have ordered ice chips for comfort if there are no procedures plan for today. If no new issues develop, I will recommend clear liquid diet soon. Electrolytes need to be replaced which may help in resolution of the ileus. Please call with any questions. Time=10min Subjective Date of service: 12/08/17 Patient Reports: Positive: pain is less (than yesterday. She has "soreness" in RLQ), no flatus, other (she is very thirsty). Negative: nausea, vomiting Objective Vital Signs - 12hr 12/08/17 12/08/17 12/08/17 02:00 02:19 03:51 Pulse Rate 109 H 95 H Pulse Rate [ 113 H From Monitor] Pulse Rate [ 110 H Left Dorsalis Pedis] Respiratory 18 14 Rate Blood Pressure 123/69 O2 Sat by Pulse 95 97 Oximetry 12/08/17 12/08/17 12/08/17 04:00 04:11 04:21 Pulse Rate 93 H 96 H 103 H Pulse Rate [ 103 H From Monitor] Pulse Rate [ 103 H Left Dorsalis Pedis] Respiratory 14 14 14 Rate Blood Pressure 115/61 123/69 123/69 O2 Sat by Pulse 97 97 97 Oximetry 12/08/17 12/08/17 12/08/17 04:30 04:41 04:51 Pulse Rate 99 H 112 H 88 Pulse Rate [ From Monitor] Pulse Rate [ Left Dorsalis Pedis] Respiratory 16 15 14 Rate Blood Pressure 112/61 115/61 115/61 O2 Sat by Pulse 97 97 97 Oximetry 12/08/17 12/08/17 12/08/17 05:00 05:11 05:21 Pulse Rate 91 H 95 H 105 H Pulse Rate [ From Monitor] Pulse Rate [ Left Dorsalis Pedis] Respiratory 15 15 14 Rate Blood Pressure 124/65 124/65 124/65 O2 Sat by Pulse 97 97 99 Oximetry 12/08/17 12/08/17 12/08/17 05:30 05:41 05:51 Pulse Rate 104 H 116 H 116 H Pulse Rate [ From Monitor] Pulse Rate [ Left Dorsalis Pedis] Respiratory 17 21 21 Rate Blood Pressure 123/75 123/75 123/75 O2 Sat by Pulse 98 93 93 Oximetry 12/08/17 12/08/17 12/08/17 06:00 06:11 06:21 Pulse Rate 122 H 113 H 113 H Pulse Rate [ 108 H From Monitor] Pulse Rate [ 108 H Left Dorsalis Pedis] Respiratory 22 21 19 Rate Blood Pressure 136/69 136/69 136/69 O2 Sat by Pulse 92 94 94 Oximetry 12/08/17 12/08/17 12/08/17 06:30 06:41 06:51 Pulse Rate 83 114 H 108 H Pulse Rate [ From Monitor] Pulse Rate [ Left Dorsalis Pedis] Respiratory 20 20 21 Rate Blood Pressure 134/69 134/69 134/69 O2 Sat by Pulse 96 93 94 Oximetry 12/08/17 12/08/17 12/08/17 07:00 07:11 07:21 Pulse Rate 95 H 111 H 108 H Pulse Rate [ From Monitor] Pulse Rate [ Left Dorsalis Pedis] Respiratory 17 16 16 Rate Blood Pressure 137/62 134/69 134/69 O2 Sat by Pulse 94 94 95 Oximetry 12/08/17 12/08/17 12/08/17 07:30 07:41 07:51 Pulse Rate 115 H 105 H 103 H Pulse Rate [ From Monitor] Pulse Rate [ Left Dorsalis Pedis] Respiratory 16 17 15 Rate Blood Pressure 141/63 141/63 141/63 O2 Sat by Pulse 95 94 95 Oximetry 12/08/17 12/08/17 12/08/17 08:00 08:11 08:21 Pulse Rate 97 H 101 H 102 H Pulse Rate [ From Monitor] Pulse Rate [ Left Dorsalis Pedis] Respiratory 16 15 15 Rate Blood Pressure 148/67 148/67 148/67 O2 Sat by Pulse 96 95 95 Oximetry 12/08/17 12/08/17 12/08/17 08:30 08:41 08:51 Pulse Rate 99 H 95 H 107 H Pulse Rate [ From Monitor] Pulse Rate [ Left Dorsalis Pedis] Respiratory 16 15 15 Rate Blood Pressure 122/62 122/62 122/62 O2 Sat by Pulse 95 95 95 Oximetry 12/08/17 12/08/17 12/08/17 09:00 09:11 09:21 Pulse Rate 111 H 108 H 105 H Pulse Rate [ From Monitor] Pulse Rate [ Left Dorsalis Pedis] Respiratory 18 17 16 Rate Blood Pressure 132/64 132/64 132/64 O2 Sat by Pulse 94 95 94 Oximetry 12/08/17 12/08/17 12/08/17 09:30 09:41 09:51 Pulse Rate 98 H 117 H 102 H Pulse Rate [ From Monitor] Pulse Rate [ Left Dorsalis Pedis] Respiratory 16 20 17 Rate Blood Pressure 139/71 139/71 139/71 O2 Sat by Pulse 96 94 96 Oximetry 12/08/17 12/08/17 12/08/17 10:00 10:11 10:21 Pulse Rate 115 H 108 H 116 H Pulse Rate [ From Monitor] Pulse Rate [ Left Dorsalis Pedis] Respiratory 15 20 20 Rate Blood Pressure 144/73 139/71 139/71 O2 Sat by Pulse 94 95 95 Oximetry 12/08/17 12/08/17 12/08/17 10:30 10:41 10:51 Pulse Rate 116 H 112 H 123 H Pulse Rate [ From Monitor] Pulse Rate [ Left Dorsalis Pedis] Respiratory 20 25 H 27 H Rate Blood Pressure 134/77 134/77 134/77 O2 Sat by Pulse 94 95 95 Oximetry 12/08/17 12/08/17 12/08/17 11:00 11:11 11:21 Pulse Rate 113 H 108 H 116 H Pulse Rate [ From Monitor] Pulse Rate [ Left Dorsalis Pedis] Respiratory 16 19 16 Rate Blood Pressure 139/68 134/77 134/77 O2 Sat by Pulse 96 95 94 Oximetry 12/08/17 12/08/17 12/08/17 11:30 11:41 11:51 Pulse Rate 108 H 112 H 126 H Pulse Rate [ From Monitor] Pulse Rate [ Left Dorsalis Pedis] Respiratory 15 22 21 Rate Blood Pressure 139/65 139/65 139/68 O2 Sat by Pulse 94 96 94 Oximetry 12/08/17 12:00 Pulse Rate 107 H Pulse Rate [ From Monitor] Pulse Rate [ Left Dorsalis Pedis] Respiratory 18 Rate Blood Pressure 135/61 O2 Sat by Pulse 95 Oximetry - General physical appearance no distress, no pain - Abdomen soft, not tender (on exam. She reports that her RLQ is "sore", but there is no objective signs of tenderness), bowel sounds hypoactive, not distended, not guarding, not rigid, not wound - Integumentary no rash, no growths, no abnormal pigmentation - Psychiatric speech is normal - Labs 12/07/17 05:25 12/08/17 07:30 Diabetes panel 12/08/17 Range/Units 07:30 Sodium 140 (137-145) mmol/L Potassium 3.8 D (3.6-5.0) mmol/L Chloride 105.1 (98-107) mmol/L Carbon Dioxide 23 (22-30) mmol/L BUN 7 (7-17) mg/dL Creatinine 0.7 (0.7-1.2) mg/dL Glucose 171 H (65-100) mg/dL Calcium 7.8 L (8.4-10.2) mg/dL AST 19 (5-40) units/L ALT 9 (7-56) units/L Alkaline Phosphatase 42 (35-129) units/L Total Protein 4.5 L (6.3-8.2) g/dL Albumin 2.6 L (3.9-5) g/dL Calcium panel 12/08/17 Range/Units 07:30 Calcium 7.8 L (8.4-10.2) mg/dL Phosphorus 1.40 L (2.5-4.5) mg/dL Albumin 2.6 L (3.9-5) g/dL Pituitary panel 12/08/17 Range/Units 07:30 Sodium 140 (137-145) mmol/L Potassium 3.8 D (3.6-5.0) mmol/L Chloride 105.1 (98-107) mmol/L Carbon Dioxide 23 (22-30) mmol/L BUN 7 (7-17) mg/dL Creatinine 0.7 (0.7-1.2) mg/dL Glucose 171 H (65-100) mg/dL Calcium 7.8 L (8.4-10.2) mg/dL Adrenal panel 12/08/17 Range/Units 07:30 Sodium 140 (137-145) mmol/L Potassium 3.8 D (3.6-5.0) mmol/L Chloride 105.1 (98-107) mmol/L Carbon Dioxide 23 (22-30) mmol/L BUN 7 (7-17) mg/dL Creatinine 0.7 (0.7-1.2) mg/dL Glucose 171 H (65-100) mg/dL Calcium 7.8 L (8.4-10.2) mg/dL Total Bilirubin 0.30 (0.1-1.2) mg/dL AST 19 (5-40) units/L ALT 9 (7-56) units/L Alkaline Phosphatase 42 (35-129) units/L Total Protein 4.5 L (6.3-8.2) g/dL Albumin 2.6 L (3.9-5) g/dL - Imaging Abdominal x-ray: report reviewed, image reviewed
[2017-12-08] MEDS: PROTONIX PO SCH (13:03)
[2017-12-08] MEDS: PROCARDIA XL PO SCH (13:04)
[2017-12-08] MEDS: ATIVAN PO SCH ×2 (13:04→23:13)
[2017-12-08] MEDS: LEVAQUIN 500MG/100ML 500 MG/100 ML BAG IV SCH (13:04)
[2017-12-08] MEDS: SODIUM CHLORIDE FLUSH SYRINGE 10 ML IV SCH ×2 (13:05→23:14)
[2017-12-08] MEDS: D5W/NS W/KCL 20MEQ 20 MEQ/1,000 ML BAG IV SCH ×2 (13:06)
--- NOTE | 2017-12-08 15:52 | Progress Note ---
Assessment and Plan - Patient Problems (1) Abdominal pain Current Visit: Yes Status: Acute Qualifiers: Abdominal location: unspecified location Qualified Code(s): R10.9 - Unspecified abdominal pain Plan to address problem: Abdominal pain resolving, still hypoactive bowel sounds, will continue NG suction and keep nothing by mouth for now Subjective Date of service: 12/08/17 Principal diagnosis: GI bleed Interval history: Covering Dr. Dr. Kilpatrick Patient seen and examined chart reviewed, consultants notes reviewed. Patient denied any new complaints stated that abdominal pain is slightly improved nausea but no vomiting reported no fever reported by nursing staff denied chest pain or shortness of breath. Objective - Exam Narrative Exam: GENERAL: Resting comfortably not in distress HEENT: [Moderately pale pale, not jaundiced, not cyanosed.] NECK: [No JVD, no thyroid enlargement and no lymphadenopathy.] CHEST/LUNGS: [Good air exchange bilaterally, no wheeze, no rales and no rhonchi. ] [No chest wall tenderness, percussion is normal, symmetrical chest wall.] HEART/CARDIOVASCULAR: [Regular rate and rhythm, S1 and S2 only, no murmur.] ABDOMEN: [Abdomen is soft, diffuse tenderness moderate guarding and rebound tenderness diminished bowel sounds.] SKIN: [Warm and dry, no rash.] NEURO: [Awake, alert, oriented x3, speech normal. Power 5/5 in all the extremities.] EXTREMITIES: [No pedal edema, good peripheral pulses, no finger or toe clubbing. ] - Constitutional Vitals: Vital Signs - 12hr 12/08/17 12/08/17 12/08/17 03:51 04:00 04:11 Pulse Rate 95 H 93 H 96 H Pulse Rate [ 103 H From Monitor] Pulse Rate [ 103 H Left Dorsalis Pedis] Respiratory 14 14 14 Rate Blood Pressure 123/69 115/61 123/69 O2 Sat by Pulse 97 97 97 Oximetry 12/08/17 12/08/17 12/08/17 04:21 04:30 04:41 Pulse Rate 103 H 99 H 112 H Pulse Rate [ From Monitor] Pulse Rate [ Left Dorsalis Pedis] Respiratory 14 16 15 Rate Blood Pressure 123/69 112/61 115/61 O2 Sat by Pulse 97 97 97 Oximetry 12/08/17 12/08/17 12/08/17 04:51 05:00 05:11 Pulse Rate 88 91 H 95 H Pulse Rate [ From Monitor] Pulse Rate [ Left Dorsalis Pedis] Respiratory 14 15 15 Rate Blood Pressure 115/61 124/65 124/65 O2 Sat by Pulse 97 97 97 Oximetry 12/08/17 12/08/17 12/08/17 05:21 05:30 05:41 Pulse Rate 105 H 104 H 116 H Pulse Rate [ From Monitor] Pulse Rate [ Left Dorsalis Pedis] Respiratory 14 17 21 Rate Blood Pressure 124/65 123/75 123/75 O2 Sat by Pulse 99 98 93 Oximetry 12/08/17 12/08/17 12/08/17 05:51 06:00 06:11 Pulse Rate 116 H 122 H 113 H Pulse Rate [ 108 H From Monitor] Pulse Rate [ 108 H Left Dorsalis Pedis] Respiratory 21 22 21 Rate Blood Pressure 123/75 136/69 136/69 O2 Sat by Pulse 93 92 94 Oximetry 12/08/17 12/08/17 12/08/17 06:21 06:30 06:41 Pulse Rate 113 H 83 114 H Pulse Rate [ From Monitor] Pulse Rate [ Left Dorsalis Pedis] Respiratory 19 20 20 Rate Blood Pressure 136/69 134/69 134/69 O2 Sat by Pulse 94 96 93 Oximetry 12/08/17 12/08/17 12/08/17 06:51 07:00 07:11 Pulse Rate 108 H 95 H 111 H Pulse Rate [ From Monitor] Pulse Rate [ Left Dorsalis Pedis] Respiratory 21 17 16 Rate Blood Pressure 134/69 137/62 134/69 O2 Sat by Pulse 94 94 94 Oximetry 12/08/17 12/08/17 12/08/17 07:21 07:30 07:41 Pulse Rate 108 H 115 H 105 H Pulse Rate [ From Monitor] Pulse Rate [ Left Dorsalis Pedis] Respiratory 16 16 17 Rate Blood Pressure 134/69 141/63 141/63 O2 Sat by Pulse 95 95 94 Oximetry 12/08/17 12/08/17 12/08/17 07:51 08:00 08:11 Pulse Rate 103 H 97 H 101 H Pulse Rate [ From Monitor] Pulse Rate [ Left Dorsalis Pedis] Respiratory 15 16 15 Rate Blood Pressure 141/63 148/67 148/67 O2 Sat by Pulse 95 96 95 Oximetry 12/08/17 12/08/17 12/08/17 08:21 08:30 08:41 Pulse Rate 102 H 99 H 95 H Pulse Rate [ From Monitor] Pulse Rate [ Left Dorsalis Pedis] Respiratory 15 16 15 Rate Blood Pressure 148/67 122/62 122/62 O2 Sat by Pulse 95 95 95 Oximetry 12/08/17 12/08/17 12/08/17 08:51 09:00 09:11 Pulse Rate 107 H 111 H 108 H Pulse Rate [ From Monitor] Pulse Rate [ Left Dorsalis Pedis] Respiratory 15 18 17 Rate Blood Pressure 122/62 132/64 132/64 O2 Sat by Pulse 95 94 95 Oximetry 12/08/17 12/08/17 12/08/17 09:21 09:30 09:41 Pulse Rate 105 H 98 H 117 H Pulse Rate [ From Monitor] Pulse Rate [ Left Dorsalis Pedis] Respiratory 16 16 20 Rate Blood Pressure 132/64 139/71 139/71 O2 Sat by Pulse 94 96 94 Oximetry 12/08/17 12/08/17 12/08/17 09:51 10:00 10:11 Pulse Rate 102 H 115 H 108 H Pulse Rate [ From Monitor] Pulse Rate [ Left Dorsalis Pedis] Respiratory 17 15 20 Rate Blood Pressure 139/71 144/73 139/71 O2 Sat by Pulse 96 94 95 Oximetry 12/08/17 12/08/17 12/08/17 10:21 10:30 10:41 Pulse Rate 116 H 116 H 112 H Pulse Rate [ From Monitor] Pulse Rate [ Left Dorsalis Pedis] Respiratory 20 20 25 H Rate Blood Pressure 139/71 134/77 134/77 O2 Sat by Pulse 95 94 95 Oximetry 12/08/17 12/08/17 12/08/17 10:51 11:00 11:11 Pulse Rate 123 H 113 H 108 H Pulse Rate [ From Monitor] Pulse Rate [ Left Dorsalis Pedis] Respiratory 27 H 16 19 Rate Blood Pressure 134/77 139/68 134/77 O2 Sat by Pulse 95 96 95 Oximetry 12/08/17 12/08/17 12/08/17 11:21 11:30 11:41 Pulse Rate 116 H 108 H 112 H Pulse Rate [ From Monitor] Pulse Rate [ Left Dorsalis Pedis] Respiratory 16 15 22 Rate Blood Pressure 134/77 139/65 139/65 O2 Sat by Pulse 94 94 96 Oximetry 12/08/17 12/08/17 11:51 12:00 Pulse Rate 126 H 107 H Pulse Rate [ From Monitor] Pulse Rate [ Left Dorsalis Pedis] Respiratory 21 18 Rate Blood Pressure 139/68 135/61 O2 Sat by Pulse 94 95 Oximetry - Labs CBC & Chem 7: 12/07/17 05:25 12/09/17 05:30 Labs: Abnormal lab results 12/08/17 12/08/17 12/08/17 Range/Units 00:05 05:26 07:30 Glucose 171 H (65-100) mg/dL POC Glucose 139 H 176 H (70-105) Calcium 7.8 L (8.4-10.2) mg/dL Phosphorus 1.40 L (2.5-4.5) mg/dL Magnesium 1.40 L (1.7-2.3) mg/dL Total Protein 4.5 L (6.3-8.2) g/dL Albumin 2.6 L (3.9-5) g/dL 12/08/17 Range/Units 14:29 Glucose (65-100) mg/dL POC Glucose 162 H (70-105) Calcium (8.4-10.2) mg/dL Phosphorus (2.5-4.5) mg/dL Magnesium (1.7-2.3) mg/dL Total Protein (6.3-8.2) g/dL Albumin (3.9-5) g/dL
[2017-12-08] MEDS: ZOFRAN IV PRN (23:12)
[2017-12-09] MEDS: FLAGYL 500 MG/100 ML 500 MG/100 ML BAG IV SCH ×3 (05:58→22:30)
[2017-12-09 06:55] LABS: Alanine Aminotransferase 11 units/L (7-56); Albumin 2.7 g/dL (3.9-5); BUN/Creatinine Ratio 7; Blood Urea Nitrogen 5 mg/dL (7-17); Calcium 8.2 mg/dL (8.4-10.2); Hemolysis Index 28
[2017-12-09] MEDS: LEVAQUIN 500MG/100ML 500 MG/100 ML BAG IV SCH (10:26)
[2017-12-09] MEDS: PROTONIX PO SCH (10:30)
[2017-12-09] MEDS: ATIVAN PO SCH (10:30)
--- NOTE | 2017-12-09 10:31 | Gastroenterology Progress Note ---
Assessment and Plan GI bleed: no signs bleeding overnight - follow h/h - no plans to scope at this time Abdominal pain: improved, ?passing gas, possible gastroenteritis - KUB today, if improved start clear liquid - await further surgery input - will follow Subjective Date of service: 12/09/17 Principal diagnosis: GI bleed Interval history: - no signs bleeding or other GI issues overnight Objective - Constitutional Vitals: Temp Pulse Resp BP Pulse Ox 97.6 F 96 H 18 108/65 93 12/09/17 07:57 12/09/17 07:57 12/09/17 07:57 12/09/17 07:57 12/09/17 07:57 General appearance: no acute distress - EENT Eyes: PERRL - Respiratory Respiratory: bilateral: CTA - Cardiovascular Rhythm: regular Heart Sounds: Present: S1 & S2 - Gastrointestinal General gastrointestinal: Present: soft, non-tender, non-distended - Labs CBC & Chem 7: 12/07/17 05:25 12/09/17 05:30 Labs: Laboratory Results - last 24 hr 12/08/17 12/08/17 12/08/17 14:29 18:21 23:43 Sodium Potassium Chloride Carbon Dioxide Anion Gap BUN Creatinine Estimated GFR BUN/Creatinine Ratio Glucose POC Glucose 162 H 94 125 H Calcium Total Bilirubin AST ALT Alkaline Phosphatase Total Protein Albumin Albumin/Globulin Ratio 12/09/17 12/09/17 05:30 06:27 Sodium 141 Potassium 3.4 L Chloride 99.8 Carbon Dioxide 25 Anion Gap 20 BUN 5 L Creatinine 0.7 Estimated GFR > 60 BUN/Creatinine Ratio 7 Glucose 103 H POC Glucose 109 H Calcium 8.2 L Total Bilirubin 0.30 AST 23 ALT 11 Alkaline Phosphatase 42 Total Protein 4.6 L Albumin 2.7 L Albumin/Globulin Ratio 1.4
[2017-12-09] MEDS: COREG PO SCH ×2 (10:32→23:28)
[2017-12-09] MEDS: SODIUM CHLORIDE FLUSH SYRINGE 10 ML IV SCH (10:33)
--- NOTE | 2017-12-09 12:10 | XRay Report ---
FINAL REPORT EXAM: XR ABDOMEN 1V AP HISTORY: r/o obstruction TECHNIQUE: Supine abdomen PRIORS: 12/07/2017 FINDINGS: A nasogastric tube terminates in the stomach. The gas pattern is nonspecific. There is gas seen within normal caliber colon. There is mild gaseous distention of some small bowel loops although improved in the interval. There postoperative and degenerative changes in the lumbar spine. There are splenic artery calcifications in the upper abdomen. There are also aortoiliac atherosclerotic calcifications. IMPRESSION: Nonspecific abdomen. Mild gaseous distention of small bowel has improved in the interval.
--- NOTE | 2017-12-09 13:17 | Progress Note ---
Assessment and Plan - Patient Problems (1) Abdominal pain Current Visit: Yes Status: Acute Qualifiers: Abdominal location: unspecified location Qualified Code(s): R10.9 - Unspecified abdominal pain Plan to address problem: Patient stable. Her abdominal exam is very benign. X-ray appears fairly unremarkable. I will start patient on a clear liquid diet. I will leave the NG tube in for now in case she becomes symptomatic and we need to put her back on suction. We will leave it clamped for now. Please call with any questions. Time=10min Subjective Date of service: 12/09/17 Patient Reports: Positive: feels better, pain is less, nausea (mild), other ( wants something to drink) Objective Vital Signs - 12hr 12/09/17 12/09/17 02:11 07:57 Temperature 97.6 F Pulse Rate 83 96 H Respiratory 18 Rate Blood Pressure 108/65 O2 Sat by Pulse 96 93 Oximetry - General physical appearance no distress, no pain, other (appears tired. Awakened from sleep) - Eyes normal occular movement - Respiratory normal respiratory effort - Abdomen soft, tender (mild in upper abdomen. "soreness" in RLQ, but no clinical signs of tenderness), bowel sounds hypoactive (no high pitched bowel sounds), not distended, not guarding, not rigid - Psychiatric speech is normal - Labs 12/07/17 05:25 12/09/17 05:30 Diabetes panel 12/09/17 Range/Units 05:30 Sodium 141 (137-145) mmol/L Potassium 3.4 L (3.6-5.0) mmol/L Chloride 99.8 (98-107) mmol/L Carbon Dioxide 25 (22-30) mmol/L BUN 5 L (7-17) mg/dL Creatinine 0.7 (0.7-1.2) mg/dL Glucose 103 H (65-100) mg/dL Calcium 8.2 L (8.4-10.2) mg/dL AST 23 (5-40) units/L ALT 11 (7-56) units/L Alkaline Phosphatase 42 (35-129) units/L Total Protein 4.6 L (6.3-8.2) g/dL Albumin 2.7 L (3.9-5) g/dL Calcium panel 12/09/17 Range/Units 05:30 Calcium 8.2 L (8.4-10.2) mg/dL Albumin 2.7 L (3.9-5) g/dL Pituitary panel 12/09/17 Range/Units 05:30 Sodium 141 (137-145) mmol/L Potassium 3.4 L (3.6-5.0) mmol/L Chloride 99.8 (98-107) mmol/L Carbon Dioxide 25 (22-30) mmol/L BUN 5 L (7-17) mg/dL Creatinine 0.7 (0.7-1.2) mg/dL Glucose 103 H (65-100) mg/dL Calcium 8.2 L (8.4-10.2) mg/dL Adrenal panel 12/09/17 Range/Units 05:30 Sodium 141 (137-145) mmol/L Potassium 3.4 L (3.6-5.0) mmol/L Chloride 99.8 (98-107) mmol/L Carbon Dioxide 25 (22-30) mmol/L BUN 5 L (7-17) mg/dL Creatinine 0.7 (0.7-1.2) mg/dL Glucose 103 H (65-100) mg/dL Calcium 8.2 L (8.4-10.2) mg/dL Total Bilirubin 0.30 (0.1-1.2) mg/dL AST 23 (5-40) units/L ALT 11 (7-56) units/L Alkaline Phosphatase 42 (35-129) units/L Total Protein 4.6 L (6.3-8.2) g/dL Albumin 2.7 L (3.9-5) g/dL - Imaging Abdominal x-ray: report reviewed, image reviewed
--- NOTE | 2017-12-09 13:48 | Progress Note ---
Assessment and Plan - Patient Problems (1) Abdominal pain Current Visit: Yes Status: Acute Qualifiers: Abdominal location: unspecified location Qualified Code(s): R10.9 - Unspecified abdominal pain Plan to address problem: Abdominal pain gradually subsided bowel sounds noted to hypoactive. Keep NG tube in place keep N G-tube in place. (2) Ileus Current Visit: Yes Status: Acute Plan to address problem: Keep nothing by mouth, continue IV antibiotics, IV fluids and correct any underlying electrolyte abnormalities. Subjective Date of service: 12/09/17 Principal diagnosis: GI bleed Interval history: Covering Dr. Dr. Kilpatrick Patient seen and examined chart reviewed, consultants notes reviewed. Patient denied any new complaints stated that abdominal pain is slightly improved nausea but no vomiting reported no fever reported by nursing staff denied chest pain or shortness of breath. Objective - Exam Narrative Exam: GENERAL: Resting comfortably not in distress HEENT: [Moderately pale pale, not jaundiced, not cyanosed.] NECK: [No JVD, no thyroid enlargement and no lymphadenopathy.] CHEST/LUNGS: [Good air exchange bilaterally, no wheeze, no rales and no rhonchi. ] [No chest wall tenderness, percussion is normal, symmetrical chest wall.] HEART/CARDIOVASCULAR: [Regular rate and rhythm, S1 and S2 only, no murmur.] ABDOMEN: [Abdomen is soft, diffuse tenderness moderate guarding and rebound tenderness diminished bowel sounds.] SKIN: [Warm and dry, no rash.] NEURO: [Awake, alert, oriented x3, speech normal. Power 5/5 in all the extremities.] EXTREMITIES: [No pedal edema, good peripheral pulses, no finger or toe clubbing. ] - Constitutional Vitals: Vital Signs - 12hr 12/09/17 12/09/17 02:11 07:57 Temperature 97.6 F Pulse Rate 83 96 H Respiratory 18 Rate Blood Pressure 108/65 O2 Sat by Pulse 96 93 Oximetry - Labs CBC & Chem 7: 12/07/17 05:25 12/09/17 05:30 Labs: Abnormal lab results 12/08/17 12/08/17 12/09/17 Range/Units 14:29 23:43 05:30 Potassium 3.4 L (3.6-5.0) mmol/L BUN 5 L (7-17) mg/dL Glucose 103 H (65-100) mg/dL POC Glucose 162 H 125 H (70-105) Calcium 8.2 L (8.4-10.2) mg/dL Total Protein 4.6 L (6.3-8.2) g/dL Albumin 2.7 L (3.9-5) g/dL 12/09/17 Range/Units 06:27 Potassium (3.6-5.0) mmol/L BUN (7-17) mg/dL Glucose (65-100) mg/dL POC Glucose 109 H (70-105) Calcium (8.4-10.2) mg/dL Total Protein (6.3-8.2) g/dL Albumin (3.9-5) g/dL
[2017-12-09] MEDS: D5W/NS W/KCL 20MEQ 20 MEQ/1,000 ML BAG IV SCH ×2 (14:31→20:18)
[2017-12-09] MEDS: ZOFRAN IV PRN (20:18)
[2017-12-10 05:24] LABS: Alanine Aminotransferase 11 units/L (7-56); Albumin 2.5 g/dL (3.9-5); BUN/Creatinine Ratio 6; Blood Urea Nitrogen 4 mg/dL (7-17); Calcium 8.1 mg/dL (8.4-10.2); Hemolysis Index 11
[2017-12-10] MEDS: PROTONIX PO SCH (09:35)
[2017-12-10] MEDS: ATIVAN PO SCH ×2 (09:35→22:10)
[2017-12-10] MEDS: COREG PO SCH (09:35)
[2017-12-10] MEDS: LEVAQUIN 500MG/100ML 500 MG/100 ML BAG IV SCH (09:36)
[2017-12-10] MEDS: FLAGYL 500 MG/100 ML 500 MG/100 ML BAG IV SCH ×3 (09:36→22:00)
[2017-12-10] MEDS: D5W/NS W/KCL 20MEQ 20 MEQ/1,000 ML BAG IV SCH (09:37)
--- NOTE | 2017-12-10 10:02 | Gastroenterology Progress Note ---
Assessment and Plan 1.colitis 2.ileus -afebrile -H/H stable -stool with few WBCs, stool culture negative -No BM overnight or this am-no active signs of bleeding -abd CT 12/03-showed extensive thickening of the wall of the ileum, may be due to infectious enteritis, inflammatory enteritis, or ischemia -last colonoscopy per daughter (Mamie [phone]) was approx 1 yr ago at [facility] [place] that revealed diverticulosis -no plans for scope at this time -etiology- likely infectious or toxic enteritis, ischemia less likely -abd x-ray showed ileus -surgery following -clinically, patient is stable with reports of mild intermittent upper abd pain and nausea but no vomiting -NGT currently clamped. Tolerating clears -will repeat KUB in am -continue clears, consider removal of NGT based on progress, if okay with surgery -continue antibiotics, PPI, and supportive care -will follow Subjective Date of service: 12/10/17 Principal diagnosis: GI bleed Interval history: Patient resting in bed w/o acute distress. Reports intermittent upper abd pain and nausea but no vomiting. NGT clamped. Tolerating clears. No flatus or BM. Objective - Constitutional Vitals: Temp Pulse Resp BP Pulse Ox 97.5 F L 97 H 18 143/72 94 12/10/17 08:00 12/10/17 09:35 12/10/17 08:00 12/10/17 09:35 12/10/17 08:00 General appearance: no acute distress - Respiratory Respiratory: bilateral: CTA - Cardiovascular Rhythm: regular Heart Sounds: Present: S1 & S2 - Gastrointestinal General gastrointestinal: Present: soft, non-tender, non-distended, normal bowel sounds - Labs CBC & Chem 7: 12/07/17 05:25 12/10/17 04:41 Labs: Laboratory Results - last 24 hr 12/10/17 04:41 Sodium 139 Potassium 3.1 L Chloride 104.1 Carbon Dioxide 25 Anion Gap 13 BUN 4 L Creatinine 0.7 Estimated GFR > 60 BUN/Creatinine Ratio 6 Glucose 148 H Calcium 8.1 L Total Bilirubin 0.30 AST 22 ALT 11 Alkaline Phosphatase 40 Total Protein 4.7 L Albumin 2.5 L Albumin/Globulin Ratio 1.1
--- NOTE | 2017-12-10 12:49 | Progress Note ---
Assessment and Plan 87 yo F with 1. enteritis - infection vs inflammatory vs ischemic 2. hypokalemia 3. ileus Plan: 1. c/w IVF 2. NGT clamped since this am - had 10 cc of output upon placing to suction. NGT removed. 3. continue IV abx per 1' 4. will adv diet based on patient's clinical progress 5. replace lytes 6. DVT ppx Thank you for this consultation, please call with questions or concerns. Subjective Date of service: 12/10/17 Narrative: Pt seen and examined. c/o some mild epigastric abd pain. No n/v. Had large BM yesterday. States she is passing flatus. She has been tolerating clear liquids. Objective Vital Signs - 12hr 12/10/17 12/10/17 12/10/17 04:20 08:00 09:35 Temperature 99.2 F 97.5 F L Pulse Rate 89 77 97 H Respiratory 20 18 Rate Blood Pressure 142/69 143/72 Blood Pressure 143/77 [Right] O2 Sat by Pulse 93 94 Oximetry - General physical appearance Narrative Exam: Gen: Awake and alert. NAD CV: S1, S2+ Resp: even and unlabored Abd: soft, ND, mild TTP near umbilicus. There is a soft, reducible hernia in this location without skin changes. no r/r/g Ext: no c/c/e - Labs 12/07/17 05:25 12/10/17 04:41 Diabetes panel 12/10/17 Range/Units 04:41 Sodium 139 (137-145) mmol/L Potassium 3.1 L (3.6-5.0) mmol/L Chloride 104.1 (98-107) mmol/L Carbon Dioxide 25 (22-30) mmol/L BUN 4 L (7-17) mg/dL Creatinine 0.7 (0.7-1.2) mg/dL Glucose 148 H (65-100) mg/dL Calcium 8.1 L (8.4-10.2) mg/dL AST 22 (5-40) units/L ALT 11 (7-56) units/L Alkaline Phosphatase 40 (35-129) units/L Total Protein 4.7 L (6.3-8.2) g/dL Albumin 2.5 L (3.9-5) g/dL Calcium panel 12/10/17 Range/Units 04:41 Calcium 8.1 L (8.4-10.2) mg/dL Albumin 2.5 L (3.9-5) g/dL Pituitary panel 12/10/17 Range/Units 04:41 Sodium 139 (137-145) mmol/L Potassium 3.1 L (3.6-5.0) mmol/L Chloride 104.1 (98-107) mmol/L Carbon Dioxide 25 (22-30) mmol/L BUN 4 L (7-17) mg/dL Creatinine 0.7 (0.7-1.2) mg/dL Glucose 148 H (65-100) mg/dL Calcium 8.1 L (8.4-10.2) mg/dL Adrenal panel 12/10/17 Range/Units 04:41 Sodium 139 (137-145) mmol/L Potassium 3.1 L (3.6-5.0) mmol/L Chloride 104.1 (98-107) mmol/L Carbon Dioxide 25 (22-30) mmol/L BUN 4 L (7-17) mg/dL Creatinine 0.7 (0.7-1.2) mg/dL Glucose 148 H (65-100) mg/dL Calcium 8.1 L (8.4-10.2) mg/dL Total Bilirubin 0.30 (0.1-1.2) mg/dL AST 22 (5-40) units/L ALT 11 (7-56) units/L Alkaline Phosphatase 40 (35-129) units/L Total Protein 4.7 L (6.3-8.2) g/dL Albumin 2.5 L (3.9-5) g/dL
[2017-12-10] MEDS: TYLENOL PO PRN (12:55)
--- NOTE | 2017-12-10 13:31 | Progress Note ---
Assessment and Plan - Enteritis likely infectious versus inflammatory. Bloody diarrhea - resolving Currently on NG tube. Continue with IV hydration. - Ileus continue with NGT and iv hydration - Acute metabolic encephalopathy Resolved. Patient is back to baseline by to moderate dementia - Prediabetes with A1c of 6.2% Blood sugar slightly elevated because of IV hydration with D5 half-normal Commence patient on low-dose sliding scale insulin every 6 hours - Hypokalemia Supplement and recheck potassium and check magnesium level - Mild dehydration. BUN of 31 DVT prophylaxis with SCDs. We'll commence Lovenox since no more evidence of GI bleeding Subjective Date of service: 12/10/17 Principal diagnosis: GI bleed, enterocolitis Interval history: Patient seen and examined. Abdominal pain improved since patient has been on NG tube. Discussed with patient's nurse. Laboratory tests reviewed. Objective - Exam Narrative Exam: Constitutional: Well-nourished well-developed. Less confused. On NG tube. In no distress Head: Normocephalic atraumatic Eyes: Pupils are equal round and reactive to light Nose: No enlarged turbinates, no septal deviation. Mouth: Moist mucous membranes. Neck: Supple no thyromegaly. No bruit. No JVD Heart: Regular rate and rhythm, S1-S2 abnormal. No rubs murmurs or gallop Lungs: Decreased breath sounds bilaterally. no rales or rhonchi Abdomen: Soft, nontender. Bowel sound diminished. Extremities: No edema no cyanosis and no clubbing. Neuro: Alert oriented Oriented x1. No focal sensory or motor deficit. Pleasantly confused Skin: No rashes no hyperemic spots Psychiatry: Pleasantly Confused. - Constitutional Vitals: Vital Signs - 12hr 12/10/17 12/10/17 12/10/17 04:20 08:00 09:35 Temperature 99.2 F 97.5 F L Pulse Rate 89 77 97 H Respiratory 20 18 Rate Blood Pressure 142/69 143/72 Blood Pressure 143/77 [Right] O2 Sat by Pulse 93 94 Oximetry - Labs CBC & Chem 7: 12/07/17 05:25 12/10/17 04:41 Labs: Abnormal lab results 12/10/17 Range/Units 04:41 Potassium 3.1 L (3.6-5.0) mmol/L BUN 4 L (7-17) mg/dL Glucose 148 H (65-100) mg/dL Calcium 8.1 L (8.4-10.2) mg/dL Total Protein 4.7 L (6.3-8.2) g/dL Albumin 2.5 L (3.9-5) g/dL
[2017-12-10] MEDS: SODIUM CHLORIDE FLUSH SYRINGE 10 ML IV SCH ×2 (14:14→15:10)
[2017-12-10] MEDS: ZOFRAN IV PRN (16:23)
[2017-12-10] MEDS ORDERED: MAGNESIUM SULFATE 1 GM in WATER FOR INJ (PF) 23 ML IV ONE (19:33)
[2017-12-10] MEDS: KCL 10MEQ/100ML 10 MEQ/100 ML BAG IV SCH (20:00)
[2017-12-11] MEDS: COREG PO SCH ×3 (00:09→21:30)
[2017-12-11] MEDS: KCL 10MEQ/100ML 10 MEQ/100 ML BAG IV SCH ×2 (05:19→05:25)
[2017-12-11] MEDS: D5W/NS W/KCL 20MEQ 20 MEQ/1,000 ML BAG IV SCH ×2 (05:33→22:27)
[2017-12-11 06:05] LABS: Basophils % (Auto) 0.5 % (0.0-1.8); Eosinophils # (Auto) 0.1 K/mm3 (0.0-0.4); Eosinophils % (Auto) 1.8 % (0.0-4.3); Hematocrit 38.3 % (30.3-42.9); Hemoglobin 12.7 gm/dl (10.1-14.3); Lymphocytes # (Auto) 0.9 K/mm3 (1.2-5.4); Lymphocytes % (Auto) 12.1 % (13.4-35.0); Mean Corpuscular HGB Conc 33 % (30-34); Mean Corpuscular Hemoglobin 30 pg (28-32); Mean Corpuscular Volume 89 fl (79-97); Monocytes # (Auto) 0.3 K/mm3 (0.0-0.8); Monocytes % (Auto) 4.6 % (0.0-7.3); Platelet Count 231 K/mm3 (140-440); Red Blood Count 4.32 M/mm3 (3.65-5.03); Red Cell Distribution Width 13.7 % (13.2-15.2)
[2017-12-11 06:40] LABS: Alanine Aminotransferase 10 units/L (7-56); Albumin 2.5 g/dL (3.9-5); BUN/Creatinine Ratio 3; Blood Urea Nitrogen 2 mg/dL (7-17); Calcium 8.1 mg/dL (8.4-10.2); Hemolysis Index 5
--- NOTE | 2017-12-11 09:06 | Progress Note ---
Assessment and Plan - Enteritis likely infectious versus inflammatory. Bloody diarrhea - resolving Currently on NG tube. Continue with IV hydration. - Ileus continue with NGT and iv hydration - Acute metabolic encephalopathy - resolving Resolved. Patient is back to baseline by to moderate dementia - Prediabetes with A1c of 6.2% Blood sugar slightly elevated because of IV hydration with D5 half-normal Commence patient on low-dose sliding scale insulin every 6 hours - Hypokalemia Supplement and recheck potassium and check magnesium level - Mild dehydration. BUN of 31 DVT prophylaxis with SCDs. We'll commence Lovenox since no more evidence of GI bleeding - Dispostion: d/c home if tolerating regular diet Subjective Date of service: 12/11/17 Principal diagnosis: GI bleed, enterocolitis Interval history: Patient seen and examined. Abdominal pain improved since patient has been on NG tube. No fever. Discussed with patient's nurse. Laboratory tests reviewed. Objective - Exam Narrative Exam: Constitutional: Well-nourished well-developed. Less confused. Afebrile. On NG tube. In no distress Head: Normocephalic atraumatic Eyes: Pupils are equal round and reactive to light Nose: No enlarged turbinates, no septal deviation. Mouth: Moist mucous membranes. Neck: Supple no thyromegaly. No bruit. No JVD Heart: Regular rate and rhythm, S1-S2 abnormal. No rubs murmurs or gallop Lungs: Decreased breath sounds bilaterally. no rales or rhonchi Abdomen: Soft, nontender. Bowel sound diminished. Extremities: No edema no cyanosis and no clubbing. Neuro: Alert oriented Oriented x1. No focal sensory or motor deficit. Pleasantly confused Skin: No rashes no hyperemic spots Psychiatry: Pleasantly Confused. - Constitutional Vitals: Vital Signs - 12hr 12/11/17 12/11/17 03:39 08:00 Temperature 98.7 F 98.7 F Pulse Rate 92 H 89 Respiratory 20 18 Rate Blood Pressure 138/77 Blood Pressure 157/91 [Right] O2 Sat by Pulse 93 91 Oximetry - Labs CBC & Chem 7: 12/12/17 05:05 12/12/17 05:05 Labs: Abnormal lab results 12/10/17 12/11/17 12/11/17 Range/Units 21:40 05:33 05:33 Lymph % (Auto) 12.1 L (13.4-35.0) % Lymph # 0.9 L (1.2-5.4) K/mm3 Seg Neutrophils % 81.0 H (40.0-70.0) % Potassium 3.4 L (3.6-5.0) mmol/L BUN 2 L (7-17) mg/dL Glucose 143 H (65-100) mg/dL POC Glucose 125 H (70-105) Calcium 8.1 L (8.4-10.2) mg/dL Phosphorus 2.30 L (2.5-4.5) mg/dL Magnesium 1.30 L (1.7-2.3) mg/dL Total Protein 4.8 L (6.3-8.2) g/dL Albumin 2.5 L (3.9-5) g/dL
--- NOTE | 2017-12-11 09:15 | Progress Note ---
Assessment and Plan - Patient Problems (1) Abdominal pain Current Visit: Yes Status: Acute Qualifiers: Abdominal location: unspecified location Qualified Code(s): R10.9 - Unspecified abdominal pain Plan to address problem: Patient stable. Her abdominal exam is very benign. X-ray appears fairly unremarkable. NGT out now. Seems to be slowly improving. soft diet ordered for this AM. As her appetite is poor, she probably won't eat very much. Skilled Nursing, she will be at risk for malnutrition unless her intake improves. This should be monitored as an out-pt. There are no surgical issues at this time. Ok for d/c from our standpoint. Please call with any questions. Time=10min Subjective Date of service: 12/11/17 Patient Reports: Positive: pain is less, tolerating liquids well, bowel movement (last night - loose. brown. No blood per staff), nausea (mild), other ( no appetite) Objective Vital Signs - 12hr 12/11/17 12/11/17 03:39 08:00 Temperature 98.7 F 98.7 F Pulse Rate 92 H 89 Respiratory 20 18 Rate Blood Pressure 138/77 Blood Pressure 157/91 [Right] O2 Sat by Pulse 93 91 Oximetry - General physical appearance no distress, no pain, other (looks better today. More relaxed. Awake and sitting up in bed) - Eyes normal occular movement - Respiratory normal respiratory effort - Abdomen soft, not tender, not distended, not guarding, not rigid - Psychiatric speech is normal - Labs 12/11/17 05:33 12/11/17 05:33 Diabetes panel 12/11/17 Range/Units 05:33 Sodium 139 (137-145) mmol/L Potassium 3.4 L (3.6-5.0) mmol/L Chloride 102.9 (98-107) mmol/L Carbon Dioxide 24 (22-30) mmol/L BUN 2 L (7-17) mg/dL Creatinine 0.7 (0.7-1.2) mg/dL Glucose 143 H (65-100) mg/dL Calcium 8.1 L (8.4-10.2) mg/dL AST 16 (5-40) units/L ALT 10 (7-56) units/L Alkaline Phosphatase 40 (35-129) units/L Total Protein 4.8 L (6.3-8.2) g/dL Albumin 2.5 L (3.9-5) g/dL Calcium panel 12/11/17 Range/Units 05:33 Calcium 8.1 L (8.4-10.2) mg/dL Phosphorus 2.30 L (2.5-4.5) mg/dL Albumin 2.5 L (3.9-5) g/dL Pituitary panel 12/11/17 Range/Units 05:33 Sodium 139 (137-145) mmol/L Potassium 3.4 L (3.6-5.0) mmol/L Chloride 102.9 (98-107) mmol/L Carbon Dioxide 24 (22-30) mmol/L BUN 2 L (7-17) mg/dL Creatinine 0.7 (0.7-1.2) mg/dL Glucose 143 H (65-100) mg/dL Calcium 8.1 L (8.4-10.2) mg/dL Adrenal panel 12/11/17 Range/Units 05:33 Sodium 139 (137-145) mmol/L Potassium 3.4 L (3.6-5.0) mmol/L Chloride 102.9 (98-107) mmol/L Carbon Dioxide 24 (22-30) mmol/L BUN 2 L (7-17) mg/dL Creatinine 0.7 (0.7-1.2) mg/dL Glucose 143 H (65-100) mg/dL Calcium 8.1 L (8.4-10.2) mg/dL Total Bilirubin 0.30 (0.1-1.2) mg/dL AST 16 (5-40) units/L ALT 10 (7-56) units/L Alkaline Phosphatase 40 (35-129) units/L Total Protein 4.8 L (6.3-8.2) g/dL Albumin 2.5 L (3.9-5) g/dL
--- NOTE | 2017-12-11 09:25 | XRay Report ---
Single view abdomen: Compared to 12/09/17 p.m. History: Ileus, abdominal pain nausea and vomiting. Findings: Few scattered minimally dilated loops of small bowel. Moderate amount of air in large bowel in the ascending and transverse colon. No definite air in rectum. No significant interval change. Impression: No significant interval change.
[2017-12-11] MEDS: SODIUM CHLORIDE FLUSH SYRINGE 10 ML IV SCH ×2 (10:12→21:32)
[2017-12-11] MEDS: PROTONIX PO SCH (10:35)
[2017-12-11] MEDS: ATIVAN PO SCH ×2 (11:34→21:30)
[2017-12-11] MEDS: LEVAQUIN 500MG/100ML 500 MG/100 ML BAG IV SCH (11:36)
--- NOTE | 2017-12-11 11:37 | Gastroenterology Progress Note ---
Assessment and Plan 1.colitis 2.ileus -afebrile -H/H stable -stool with few WBCs, stool culture negative -no active signs of bleeding -abd CT 12/03-showed extensive thickening of the wall of the ileum, may be due to infectious enteritis, inflammatory enteritis, or ischemia -last colonoscopy per daughter (Mamie [phone]) was approx 1 yr ago at [facility] that revealed diverticulosis -no plans for scope at this time -etiology- likely infectious or toxic enteritis, ischemia less likely -abd x-ray showed ileus, repeat this am fairly unremarkable -surgery following -clinically, patient is stable with abd pain improved and no N/V. BM x 1 yesterday. -Tolerating diet however appetite decreased -continue supportive care -consider repeat outpatient CT to ensure resolution of enteritis -patient okay to be d/c per GI standpoint on PO abx cipro/flagyl for a total of 7 days (on day 3 currently) with follow up clinic appt in 2-3 weeks -will sign off, please call if needed Subjective Date of service: 12/11/17 Principal diagnosis: GI bleed,colitis Interval history: Patient resting in bed w/o acute distress. NGT removed. Admits to a decreased appetite but reports abd pain improved and no N/V. BM yesterday. No active signs of bleeding. Objective - Constitutional Vitals: Temp Pulse Resp BP Pulse Ox 98.7 F 89 18 157/91 91 12/11/17 08:00 12/11/17 08:00 12/11/17 08:00 12/11/17 08:00 12/11/17 08:00 General appearance: no acute distress - Respiratory Respiratory: bilateral: CTA (anterior) - Cardiovascular Rhythm: regular Heart Sounds: Present: S1 & S2 - Gastrointestinal General gastrointestinal: Present: soft, non-tender, non-distended, normal bowel sounds - Labs CBC & Chem 7: 12/11/17 05:33 12/11/17 05:33 Labs: Laboratory Results - last 24 hr 12/10/17 12/11/17 12/11/17 21:40 05:33 05:33 WBC 7.4 RBC 4.32 Hgb 12.7 Hct 38.3 MCV 89 MCH 30 MCHC 33 RDW 13.7 Plt Count 231 Lymph % (Auto) 12.1 L Johnston % (Auto) 4.6 Eos % (Auto) 1.8 Baso % (Auto) 0.5 Lymph # 0.9 L Johnston # 0.3 Eos # 0.1 Baso # 0.0 Seg Neutrophils % 81.0 H Seg Neutrophils # 6.0 Sodium 139 Potassium 3.4 L Chloride 102.9 Carbon Dioxide 24 Anion Gap 16 BUN 2 L Creatinine 0.7 Estimated GFR > 60 BUN/Creatinine Ratio 3 Glucose 143 H POC Glucose 125 H Calcium 8.1 L Phosphorus 2.30 L Magnesium 1.30 L Total Bilirubin 0.30 AST 16 ALT 10 Alkaline Phosphatase 40 Total Protein 4.8 L Albumin 2.5 L Albumin/Globulin Ratio 1.1
[2017-12-11] MEDS: FLAGYL 500 MG/100 ML 500 MG/100 ML BAG IV SCH ×3 (14:09→21:29)
[2017-12-12] MEDS: D5W/NS W/KCL 20MEQ 20 MEQ/1,000 ML BAG IV SCH (05:17)
[2017-12-12 05:21] LABS: Hematocrit 37.5 % (30.3-42.9); Hemoglobin 12.7 gm/dl (10.1-14.3); Mean Corpuscular HGB Conc 34 % (30-34); Mean Corpuscular Hemoglobin 30 pg (28-32); Mean Corpuscular Volume 88 fl (79-97); Platelet Count 244 K/mm3 (140-440); Red Blood Count 4.27 M/mm3 (3.65-5.03); Red Cell Distribution Width 14.1 % (13.2-15.2)
[2017-12-12] MEDS: FLAGYL 500 MG/100 ML 500 MG/100 ML BAG IV SCH ×2 (05:24→13:44)
[2017-12-12 05:36] LABS: Alanine Aminotransferase 10 units/L (7-56); BUN/Creatinine Ratio 4; Blood Urea Nitrogen 3 mg/dL (7-17); Calcium 8.1 mg/dL (8.4-10.2); Hemolysis Index 26
[2017-12-12 09:17] VITALS: BP 151/88
[2017-12-12 09:27] LABS: Band Neutrophils # (Manual) 0.4 K/mm3; Basophils % (Manual) 0 % (0.0-1.8); Total Cells Counted 100
[2017-12-12 09:28] LABS: Anisocytosis 1+; Platelet Estimate Consistent w Auto
[2017-12-12] MEDS: LEVAQUIN 500MG/100ML 500 MG/100 ML BAG IV SCH (10:34)
[2017-12-12] MEDS: COREG PO SCH (10:34)
[2017-12-12] MEDS: PROTONIX PO SCH (10:34)
[2017-12-12] MEDS: ATIVAN PO SCH (10:35)
[2017-12-12] MEDS: SODIUM CHLORIDE FLUSH SYRINGE 10 ML IV SCH (10:35)
--- NOTE | 2017-12-12 11:41 | Discharge Summary ---
Providers - Providers Date of Admission: 12/03/17 11:52 Date of discharge: 12/12/17 Attending physician: MARVIN BIRMINGHAM 12/03/17 13:11 Consult to Physician [CONS] Routine Comment: Consulting Provider: ISAURA ZENDEJAS Physician Instructions: Reason For Exam: GI BLEED 12/07/17 08:56 Consult to Physician [CONS] Routine Comment: Consulting Provider: MARC WORRELL Physician Instructions: Reason For Exam: abd pain 12/10/17 17:41 Physical Therapy Evaluation and Treat [CONS] Routine Comment: Reason For Exam: Debility Primary care physician: HOSE TURNER Hospitalization Reason for admission: Bloody diarrhea Pertinent studies: CT abdomen and pelvis that showed thickening of the small intestine and consistent with infectious prpcess vs infaction. CT of the chest that showed a 4 cm ascending aorta aneurysm with no evidence of dissection. No PE Chest x-ray showed mild cardiomegaly Procedures: none Hospital course: Patient 81s and 83-year-old lady who has a history of dementia, diabetes mellitus type 2, hypertension, bipolar disorder and lives in a personal prison presented to my office today with her caregiver complaining of abdominal pain and bloody diarrhea. Abdominal pain was moderate to severe in intensity. Associated with bloody diarrhea. Has had about 10 loose motions since onset 2 days ago. Has nausea and vomiting 2. Has bright red blood mixed with loose stool . Patient had low-grade fever at home with alteration in mental status worsefrom baseline.. Denies any weight loss. History was obtained from her caregiver over the phone. CT scan of abdomen and pelvis was ordered. Report was remarkable for thickening of the ielum consistent an infectious process. However an infarction of the iluem was a possibility. Patient was placed on nothing by mouth, IV fluid, IV Levaquin and Flagyl. GI consult was obtained. Abdominal pain continued. Surgical consult was obtained. Patient was noted to be seen. CTA of the chest was ordered. Report was significant for a 4 cm ascending aorta aneurysm. No PE. No evidence of dissection. Abdominal pain continued patient was placed on NG tube connected to intermittent suction. Abdominal pain gradually resolved. Clear liquids were introduced and advanced to a regular diet. Patient tolerated the same. Diarrhea resolved. Patient is therefore discharged today to follow up with primary care physician in 3-5 days. I called the patient is not home 4 times a day and this printed discharge instructions to her. Called the patient's daughter and left a message as i could not gets to her. Disposition: DC-01 TO HOME OR SELFCARE Time spent for discharge: 35 min - Discharge Diagnoses (1) Intestinal infection due to bacteria causing bloody diarrhea Status: Acute (2) Abdominal pain Status: Acute Qualifiers: Abdominal location: unspecified location Qualified Code(s): R10.9 - Unspecified abdominal pain (3) Ileus Status: Acute (4) Metabolic encephalopathy Status: Acute Core Measure Documentation - Palliative Care Palliative Care/ Comfort Measures: Not Applicable - Core Measures Any of the following diagnoses?: none Exam - Physical Exam Narrative exam: Constitutional: Well-nourished well-developed. Less confused. Afebrile. off NGT. In no distress Head: Normocephalic atraumatic Eyes: Pupils are equal round and reactive to light Nose: No enlarged turbinates, no septal deviation. Mouth: Moist mucous membranes. Neck: Supple no thyromegaly. No bruit. No JVD Heart: Regular rate and rhythm, S1-S2 abnormal. No rubs murmurs or gallop Lungs: Decreased breath sounds bilaterally. no rales or rhonchi Abdomen: Soft, nontender. Bowel sound diminished. Extremities: No edema no cyanosis and no clubbing. Neuro: Alert oriented Oriented x1. No focal sensory or motor deficit. Pleasantly confused Skin: No rashes no hyperemic spots Psychiatry: Pleasantly Confused. - Constitutional Vitals: Temp Pulse Resp BP Pulse Ox 98.9 F 80 20 151/88 95 12/12/17 08:08 12/12/17 08:08 12/12/17 08:08 12/12/17 08:08 12/12/17 08:08 Plan Activity: advance as tolerated, fall precautions Weight Bearing Status: Weight Bear as Tolerated Diet: diabetic Follow up with: PRIMARY CARE, [Primary Care Provider] - 7 Days Prescriptions: Aspirin EC [Aspirin Enteric Coated TAB] 81 mg PO QDAY #30 tablet Carvedilol 3.125 mg PO BID #60 Metformin HCl [Glucophage] 500 mg PO HS #30 tablet NIFEdipine [Nifedipine ER] 60 mg PO QDAY #30 tab.[id number] Quetiapine Fumarate [SEROquel] 50 mg PO QDAY #30 tablet
== END 2017-12-12 14:55 | disposition home or self-care (01) | DRG 391 ==
LOC: UNDOADMIN 10:55 → 3A 10:55 → CC1 12-07 11:51 → 2B-ACE 12-08 18:38
PROVIDERS: ADMIT Family Medicine; ATTEND Family Medicine
PROC: 3E0234Z Introduction of Serum, Toxoid and Vaccine into Muscle, Percutaneous Approach (ICD-10-PCS; principal; 2017-12-04)
DX: A09 Infectious gastroenteritis and colitis, unspecified (principal); G93.41 Metabolic encephalopathy; E87.1 Hypo-osmolality and hyponatremia; L03.116 Cellulitis of left lower limb; K56.7 Ileus, unspecified; K92.2 Gastrointestinal hemorrhage, unspecified; I95.9 Hypotension, unspecified; E86.0 Dehydration; Z23 Encounter for immunization; Z88.6 Allergy status to analgesic agent; Z88.2 Allergy status to sulfonamides; Z88.8 Allergy status to other drugs, medicaments and biological substances; F31.9 Bipolar disorder, unspecified; F01.50 Vascular dementia, unspecified severity, without behavioral disturbance, psychotic disturbance, mood disturbance, and anxiety; R73.03 Prediabetes; Z79.82 Long term (current) use of aspirin; Z79.84 Long term (current) use of oral hypoglycemic drugs; E87.6 Hypokalemia
CPT/HCPCS: 36415; 71045; 71275; 74018; 74022; 74177; 80053; 81001; 82140; 82962; 83036; 83690; 83735; 84100; 85007; 85014; 85018; 85025; 85610; 85730; 87045; 90732; 93005; 93010; A9270-GY; C9113; G8978-GP; G8979-GP; J1956; J2060; J2405; J3370; J3475; J3480; J7030; J7040; Q9967